=== PATIENT | female | born 1970 | race Caucasian/White ===

== ENCOUNTER 2016-12-31 15:42 | Emergency (ER) | payer SELFPAY ==
[~2016-12-31] VITALS: Ht 162.6 cm; Wt 61.0 kg
[~2016-12-31 15:42] MED LIST: BACT800T5 PO; LISI-515 PO; METO50TA PO
[2016-12-31 15:51] VITALS: BP 206/98; PULSE 85; RESP 16; TEMP 98.8; O2SAT 94
[2016-12-31] MEDS ORDERED: traMADol HCL 50 MG TAB PO ONE ×2 (16:45→19:45)
[2016-12-31 17:43] VITALS: BP 190/98; PULSE 70; RESP 20; O2SAT 98
--- NOTE | 2016-12-31 18:37 | PD ---
HPI Chief Complaint: Musculoskeletal Complaint Time Seen by Provider: 16:26 Travel History International Travel<30 days: No Contact w/Intl Traveler<30days: No Traveled to known affect area: No History of Present Illness HPI 46-year-old female complains of pain in the right leg starting in the region of the lower calf radiating to the region of the thigh. There is a shooting quality. She states it's severe. She reports some subjective shortness of breath. No fever. Duration one day. She denies similar prior episodes. Patient denies trauma. Patient reports no improvement from ibuprofen. PFSH Past Medical History Hx Anticoagulant Therapy: Yes (asa) Asthma: Yes Autoimmune Disease: No Cancer: Yes (REPORTS UTERINE CA-ABLASION) Cardiac Catheterization: Yes Cardiovascular Problems: Yes High Cholesterol: Yes Chest Pain: Yes Congestive Heart Failure: Yes Coronary Artery Disease: Yes Diminished Hearing: No Endocrine: No Gastrointestinal Disorders: Yes (GERD) Genitourinary: Yes Hypertension: Yes Immune Disorder: No Kidney Stones: Yes Musculoskeletal: No Neurologic: No Psychiatric: No Reproductive: No Respiratory: Yes Immunizations Current: Yes Myocardial Infarction: Yes (6) Tetanus Vaccination: < 5 Years Influenza Vaccination: Yes ?: Not : 4 Para: 3 Miscarriage: 2 Past Surgical History Cardiac Surgery: Yes Section: Yes Coronary Stent: Yes (13) Genitourinary Surgery: Yes (KIDNEY STONES) Gynecologic Surgery: Yes Other Surgery: Yes Social History Alcohol Use: No Tobacco Use: Yes (COUPLE A DAY) Substance Use: No Allergies-Medications (Allergen,Severity, Reaction): Coded Allergies: penicillin G (Unverified Allergy, Severe, Hives, 12/31/16) Reported Meds & Prescriptions Reported Meds & Active Scripts Active Lisinopril 20 Mg Tab 20 Mg PO DAILY Metoprolol Tartrate 50 Mg Tab 50 Mg PO BID Review of Systems Except as stated in HPI: all other systems reviewed are Neg Physical Exam Narrative GENERAL: 46-year-old female well-nourished well-developed SKIN: Warm and dry. HEAD: Atraumatic. Normocephalic. EYES: Pupils equal and round. No scleral icterus. No injection or drainage. ENT: No nasal bleeding or discharge. Mucous membranes pink and moist. NECK: Trachea midline. No JVD. CARDIOVASCULAR: Regular rate and rhythm. RESPIRATORY: No accessory muscle use. Clear to auscultation. Breath sounds equal bilaterally. GASTROINTESTINAL: Abdomen soft, non-tender, nondistended. Hepatic and splenic margins not palpable. MUSCULOSKELETAL: Extremities without clubbing, cyanosis. No obvious deformities. No significant erythema swelling and erythema or tenderness in the right lower extremity. No lower extremity asymmetry. NEUROLOGICAL: Awake and alert. No obvious cranial nerve deficits. Motor grossly within normal limits. Five out of 5 muscle strength in the arms and legs. Normal speech. PSYCHIATRIC: Appropriate mood and affect; insight and judgment normal. Data Data Last Documented VS Vital Signs Date Time Temp Pulse Resp B/P (MAP) Pulse Ox O2 Delivery O2 Flow Rate FiO2 12/31/16 21:04 67 18 167/95 (119) 98 12/31/16 19:53 Room Air 12/31/16 15:51 98.8 Vital signs reviewed Orders Orders Tramadol (Ultram) (12/31/16 16:45) D-Dimer (12/31/16 16:32) Ice / Cold Pack PRN (12/31/16 16:32) Us Leg Venous Doppler Bilat (12/31/16 ) Tramadol (Ultram) (12/31/16 19:45) Labs Laboratory Tests Test 12/31/16 16:50 D-Dimer Quantitative (PE/DVT) 0.71 MG/L FEU MDM Medical Decision Making Medical Screen Exam Complete: Yes Emergency Medical Condition: Yes Medical Record Reviewed: Yes Differential Diagnosis DVT, Noble's cyst, cellulitis, or claudication, fracture Narrative Course Lower extremity DVT study negative The patient is resting comfortably and feels better, is alert and in no distress. The patients results and examination findings were discussed. The repeat examination is unremarkable and benign. The history, exam, diagnostic testing, and current condition do not suggest any significant pathology to warrant further testing, continued ED treatment, admission, or surgical evaluation at this point. The vital signs have been stable. The patient does not have uncontrollable pain, intractable vomiting, or other significant symptoms. The patient's condition is stable and appropriate for discharge. The patient will pursue further outpatient evaluation with a primary care physician or other designated or consulting physician as indicated in the discharge instructions. The patient expressed understanding and was agreeable with this plan. Diagnosis Primary Impression: Leg pain Qualified Codes: M79.604 - Pain in right leg Referrals: Primary Care Physician 2 days Additional Instructions: Follow-up with a primary care provider for further diagnostic evaluation as needed. Med/Other Pt SpecificInfo: No Change to Meds Disposition: 01 DISCHARGE HOME Condition: Stable Arsalan Mathew MD Dec 31, 2016 18:37
[2016-12-31 19:53] VITALS: BP 187/92; PULSE 61; RESP 18; O2SAT 95
--- NOTE | 2016-12-31 20:15 | RADRPT ---
EXAM DATE/TIME: 12/31/2016 18:42 [facility] COMPARISON: US LEG BILATERAL VENOUS DOPPLER, October 29, 2015, 0:35. INDICATIONS : Bilateral leg swelling. MEDICAL HISTORY : Hypertension. Hypercholesterolemia. Gastroesophageal reflux disease. Myocardial infarction. Congesti ve heart failure. Coronary artery disease. Asthma. Kidney stones. Carcinoma, uterine. SURGICAL HISTORY : section. Cardiac catheterization. Coronary stent. Uterine ablasion. ENCOUNTER: Subsequent ACUITY: 1 day PAIN SCORE: 5/10 LOCATION: Bilateral legs. TECHNIQUE: Venous ultrasound of the left and right leg was performed from the inguinal ligament to the proximal calf. Real-time, color Doppler and spectral tracing, compression and augmentation techniques were us ed. FINDINGS: RIGHT LEG: There is normal compressibility of the deep venous system from the inguinal region to the proximal ca lf. No echogenic clot is seen in the lumen of the common femoral, femoral, popliteal, and posterior tibial veins. There is a normal response of the venous system to proximal and distal augmentation an d respiration. LEFT LEG: There is normal compressibility of the deep venous system from the inguinal region to the proximal ca lf. No echogenic clot is seen in the lumen of the common femoral, femoral, popliteal, and posterior tibial veins. There is a normal response of the venous system to proximal and distal augmentation an d respiration. CONCLUSION: No DVT. Cayden Jacobs MD on December 31, 2016 at 20:13 Board Certified Radiologist. This report was verified electronically.
[2016-12-31 20:57] VITALS: RESP 18
[2016-12-31 21:04] VITALS: BP 167/95
== END 2016-12-31 21:11 | disposition home or self-care (01) ==
LOC: PHED 15:42
DX: M79.604 Pain in right leg (principal)
CPT/HCPCS: 85379; 93970; 99285

== ENCOUNTER 2017-01-02 02:59 | Emergency (ER) | payer SELFPAY ==
[~2017-01-02] VITALS: Ht 162.6 cm; Wt 61.0 kg
[~2017-01-02 02:59] MED LIST changes: -BACT800T5 PO
[2017-01-02 03:09] VITALS: BP 220/107; PULSE 84; RESP 18; TEMP 98.4; O2SAT 94
[2017-01-02 04:39] VITALS: BP 204/118; PULSE 69; RESP 18; O2SAT 96
--- NOTE | 2017-01-02 04:57 | PD ---
HPI Chief Complaint: Musculoskeletal Complaint Time Seen by Provider: 04:46 Travel History International Travel<30 days: No Contact w/Intl Traveler<30days: No Traveled to known affect area: No History of Present Illness HPI The patient is a 46-year-old homeless female, frequent visitor to this emergency room often for pain complaints. The patient was seen 2 days ago for right leg pain and she comes again for right leg pain. Ultrasound was done at that time and is normal. The patient then complained well I have nausea vomiting and diarrhea that started yesterday but she has not had any of this in emergency department. The patient call twice for pain medications. PFSH Past Medical History Hx Anticoagulant Therapy: Yes (asa) Asthma: Yes Autoimmune Disease: No Cancer: Yes (REPORTS UTERINE CA-ABLASION) Cardiac Catheterization: Yes Cardiovascular Problems: Yes High Cholesterol: Yes Chest Pain: Yes Congestive Heart Failure: Yes Coronary Artery Disease: Yes Diminished Hearing: No Endocrine: No Gastrointestinal Disorders: Yes (GERD) Genitourinary: Yes Hypertension: Yes Immune Disorder: No Kidney Stones: Yes Musculoskeletal: No Neurologic: No Psychiatric: No Reproductive: No Respiratory: Yes Immunizations Current: Yes Myocardial Infarction: Yes (6) ?: Unknown : 4 Para: 3 Miscarriage: 2 Past Surgical History Cardiac Surgery: Yes Section: Yes Coronary Stent: Yes (13) Genitourinary Surgery: Yes (KIDNEY STONES) Gynecologic Surgery: Yes Other Surgery: Yes Social History Alcohol Use: No Tobacco Use: Yes (COUPLE A DAY) Substance Use: No Allergies-Medications (Allergen,Severity, Reaction): Coded Allergies: penicillin G (Verified Allergy, Severe, Hives, 01/02/17) Reported Meds & Prescriptions Reported Meds & Active Scripts Active Lisinopril 20 Mg Tab 20 Mg PO DAILY Metoprolol Tartrate 50 Mg Tab 50 Mg PO BID Review of Systems Except as stated in HPI: all other systems reviewed are Neg Physical Exam Narrative GENERAL: Well-nourished, well-developed patient in minimal apparent distress with her right leg pain. SKIN: Focused skin assessment warm/dry. HEAD: Normocephalic. EYES: No scleral icterus. No injection or drainage. NECK: Supple, trachea midline. No JVD or lymphadenopathy. CARDIOVASCULAR: Regular rate and rhythm without murmurs, gallops, or rubs. RESPIRATORY: Breath sounds equal bilaterally. No accessory muscle use. GASTROINTESTINAL: Abdomen soft, non-tender, nondistended. MUSCULOSKELETAL: No cyanosis, or edema. Right leg shows no swelling, no erythema, normal compressibility of the calf and no evidence of any infection. BACK: Nontender without obvious deformity. No CVA tenderness. Data Data Last Documented VS Vital Signs Date Time Temp Pulse Resp B/P (MAP) Pulse Ox O2 Delivery O2 Flow Rate FiO2 01/02/17 04:39 69 18 204/118 (146) 96 Room Air 01/02/17 03:09 98.4 MDM Medical Decision Making Medical Screen Exam Complete: Yes Emergency Medical Condition: Yes Medical Record Reviewed: Yes Differential Diagnosis Malingering, drug-seeking behavior, DVT-highly unlikely, Munchhausen syndrome, Narrative Course The patient was offered Toradol and Motrin. I do not feel comfortable writing narcotics for this patient. The patient states she has Motrin at home and found this entirely unacceptable. She has been worked up completely for this right leg pain and nothing has been found. The patient has been exhibiting drug -seeking behavior since she arrived asking multiple times for pain medications. She refused Toradol. Diagnosis Primary Impression: Drug-seeking behavior Additional Impression: Malingering Additional Instructions: You were offered Motrin but I do not feel comfortable writing narcotic pain medications for this problem. You are welcome to go to another emergency department if you want a second opinion. Med/Other Pt SpecificInfo: No Change to Meds Disposition: 01 DISCHARGE HOME Condition: Stable Sami Torres MD Jan 02, 2017 04:57
[2017-01-02] MEDS ORDERED: METO50TA PO (12:16)
[2017-01-02] MEDS ORDERED: MELO-1 PO (12:16)
[2017-01-02] MEDS ORDERED: CYCL1TAB29 PO (12:16)
[2017-01-02] MEDS ORDERED: LISI-515 PO (12:16)
== END 2017-01-02 05:05 | disposition left against medical advice (07) ==
LOC: PHED 02:59
DX: Z76.5 Malingerer [conscious simulation] (principal)
CPT/HCPCS: 99281

== ENCOUNTER 2017-01-02 10:44 | Emergency (ER) | payer SELFPAY ==
[~2017-01-02] VITALS: Ht 162.6 cm; Wt 62.0 kg
[2017-01-02 10:48] VITALS: BP 219/113; PULSE 84; RESP 18; TEMP 98.6; O2SAT 92
[2017-01-02 10:56] VITALS: BP 216/115; PULSE 78; RESP 17; O2SAT 96
[2017-01-02] MEDS ORDERED: ONDANSETRON HCL 4 MG/2 ML VIAL IV PUSH ONE (11:00)
[2017-01-02] MEDS ORDERED: SODIUM CHLORIDE 0.9% FLUSH 10 ML FLUSH IVF PRN (11:00)
[2017-01-02] MEDS ORDERED: METOPROLOL TARTRATE 5 MG/5 ML VIAL IV PUSH ONE (11:00)
[2017-01-02 11:03] VITALS: O2SAT 96
[2017-01-02 11:19] VITALS: BP 214/111; PULSE 73
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
[2017-01-02] MEDS ORDERED: traMADol HCL 50 MG TAB PO ONE (11:30)
[2017-01-02 11:35] LABS: AUTOMATED NEUTROPHIL # 4.6 TH/MM3 (1.8-7.7); BASOPHIL # 0.1 TH/MM3 (0-0.2); BASOPHIL % 0.8 % (0.0-2.0); EOSINOPHIL # 0.3 TH/MM3 (0-0.4); EOSINOPHIL % 3.4 % (0.0-4.0); HEMATOCRIT 45.5 % (35.0-46.0); HEMO FLAGS DIFF FINAL; LYMPH % 29.3 % (9.0-44.0); LYMPHOCYTE # 2.3 TH/MM3 (1.0-4.8); MEAN CELL VOLUME 92.5 FL (80.0-100.0); MEAN CORPUSCULAR HEMOGLOBIN 30.7 PG (27.0-34.0); MEAN CORPUSCULAR HGB CONC 33.2 % (32.0-36.0); MONO % 8.2 % (0.0-8.0); NEUT % 58.3 % (16.0-70.0); PLATELET COUNT 283 TH/MM3 (150-450); RED BLOOD COUNT 4.92 MIL/MM3 (4.00-5.30); RED CELL DISTRIBUTION WIDTH 13.7 % (11.6-17.2); WHITE BLOOD COUNT 7.9 TH/MM3 (4.0-11.0)
--- NOTE | 2017-01-02 11:39 | RADRPT ---
EXAM DATE/TIME: 01/02/2017 11:26 [facility] COMPARISON: CHEST SINGLE AP, April 12, 2016, 18:35. INDICATIONS : Chest and leg pain for four days. MEDICAL HISTORY : Hypertension. Hypercholesterolemia. Gastroesophageal reflux disease. SURGICAL HISTORY : section. Cardiac catheterization. Coronary stent. Uterine ENCOUNTER: Initial ACUITY: 4 - 6 days PAIN SCORE: 9/10 LOCATION: Bilateral Leg. FINDINGS: A single view of the chest demonstrates the lungs to be symmetrically aerated without evidence of mas s, infiltrate or effusion. The cardiomediastinal contours are unremarkable. Osseous structures are intact. CONCLUSION: No acute disease. Cayden Strange MD on January 02, 2017 at 11:37 Board Certified Radiologist. This report was verified electronically.
[2017-01-02 11:50] LABS: APTT (PATIENT) 25.7 SEC (24.3-30.1); INTERNATIONAL NORMALIZED RATIO 0.9 RATIO; PROTHROMBIN TIME - PATIENT 9.9 SEC (9.8-11.6)
[2017-01-02 11:51] LABS: ALT (GPT) 21 U/L (10-53); ANION GAP 7 MEQ/L (5-15); AST (GOT) 16 U/L (15-37); BICARBONATE 26.7 MEQ/L (21.0-32.0); BLOOD UREA NITROGEN 12 MG/DL (7-18); CHLORIDE 106 MEQ/L (98-107); GLOMERULAR FILTRATION RATE 80 ML/MIN (>89); MAGNESIUM 2.2 MG/DL (1.5-2.5); POTASSIUM 3.9 MEQ/L (3.5-5.1); SODIUM (NA) 140 MEQ/L (136-145)
[2017-01-02 11:55] LABS: ALKALINE PHOSPHATASE 85 U/L (45-117); TOTAL BILIRUBIN ADULT 0.2 MG/DL (0.2-1.0)
[2017-01-02 11:56] LABS: CREATINE KINASE 86 U/L (26-192)
[2017-01-02 12:13] VITALS: BP 178/87; PULSE 70; RESP 17; O2SAT 96
[2017-01-02] MEDS ORDERED: LISI-515 PO (12:16)
[2017-01-02] MEDS ORDERED: METO50TA PO (12:16)
[2017-01-02] MEDS ORDERED: CYCL1TAB29 PO (12:16)
[2017-01-02] MEDS ORDERED: MELO-1 PO (12:16)
--- NOTE | 2017-01-02 17:12 | EKG ---
Date Performed: 01/02/2017 Time Performed: 11:10:49 PTAGE: 46 years EKG: Sinus rhythm POSSIBLE LEFT ATRIAL ENLARGEMENT MODERATE T-WAVE ABNORMALITY, CONSIDER LATERAL ISCHEMIA Since previo us tracing, no significant change noted ABNORMAL ECG PREVIOUS TRACING : 11/22/2016 22.41 DOCTOR: Estela De Jesus Interpretating Date/Time 01/02/2017 17:06:01
== END 2017-01-02 13:28 | disposition home or self-care (01) ==
LOC: NEPD 10:44
DX: M79.671 Pain in right foot (principal); R11.2 Nausea with vomiting, unspecified; R19.7 Diarrhea, unspecified; R94.31 Abnormal electrocardiogram [ECG] [EKG]; I10 Essential (primary) hypertension; I50.9 Heart failure, unspecified; I25.10 Atherosclerotic heart disease of native coronary artery without angina pectoris; K21.9 Gastro-esophageal reflux disease without esophagitis; Z72.0 Tobacco use
CPT/HCPCS: 71010; 80053; 82550; 83690; 83735; 84484; 85025; 85610; 85730; 93005; 96374; 96375; 99285; J2405

== ENCOUNTER 2017-05-13 15:27 | Inpatient (IN) | payer SELFPAY ==
[~2017-05-13] VITALS: Ht 162.6 cm; Wt 88.4 kg
[2017-05-13] VITALS (8 sets, daily range): BP systolic 123–196; BP diastolic 62–102; PULSE 82–112; RESP 18–24; TEMP 98.4–98.5; O2SAT 88–93
[~2017-05-13 15:27] MED LIST changes: +ASPI81TA23 PO; +ATOR20TA15 PO; +Budeson-Formot 160-4.5 Mcg Inh INH; +CARV3.125 PO; +LEVA750T9 PO; -METO50TA PO; +PRED20 PO; +VENTAER INH
[2017-05-13] MEDS ORDERED: SODIUM CHLORIDE 0.9% FLUSH 10 ML FLUSH IVF PRN (16:45)
--- NOTE | 2017-05-13 16:49 | PD ---
HPI Chief Complaint: Respiratory Symptoms Time Seen by Provider: 16:41 Travel History International Travel<30 days: No Contact w/Intl Traveler<30days: No Traveled to known affect area: No History of Present Illness HPI 46-year-old female presents to the emergency department via EMS for evaluation of shortness of breath. Patient was discharged yesterday after being admitted for COPD exacerbation, hypoxia. She states she was going to get her prescriptions and she became short of breath and called EMS. The patient received albuterol 3 and sodium Medrol 125 mg IV of the EMS. She reports continued shortness of breath. Patient reports history of cardiac stents, hypertension. She is a current tobacco smoker. She denies any fevers or chills. She denies any chest pain. No abdominal pain. No nausea, vomiting, diarrhea. Patient had chest x-ray done on May 09 which showed no acute disease. CT pulmonary angiogram was negative for PE or pneumonia. She was admitted due to hypoxia. She was discharged prescription for albuterol inhaler. However, she has not been able to pick this up. No exacerbating or alleviating factors. Moderate severity. PFSH Past Medical History Hx Anticoagulant Therapy: Yes (asa) Asthma: Yes Autoimmune Disease: No Cancer: Yes (REPORTS UTERINE CA-ABLASION (1999)) Cardiac Catheterization: Yes Cardiovascular Problems: Yes High Cholesterol: Yes Chest Pain: Yes Congestive Heart Failure: No Coronary Artery Disease: Yes Diminished Hearing: No Endocrine: No Gastrointestinal Disorders: Yes (GERD) GERD: Yes Genitourinary: Yes Hypertension: Yes Immune Disorder: No Kidney Stones: Yes Musculoskeletal: No Neurologic: No Psychiatric: No Reproductive: No Respiratory: Yes Immunizations Current: Yes Myocardial Infarction: Yes (6) : 4 Para: 3 Miscarriage: 2 Past Surgical History Body Medical Devices: stents Cardiac Surgery: Yes Section: Yes Coronary Stent: Yes (13) Genitourinary Surgery: Yes (lithotripsy) Gynecologic Surgery: Yes (uterine ablation) Other Surgery: Yes Social History Alcohol Use: No Tobacco Use: Yes (COUPLE A DAY) Substance Use: No Allergies-Medications (Allergen,Severity, Reaction): Coded Allergies: penicillin G (Verified Allergy, Severe, Hives, 05/13/17) Reported Meds & Prescriptions Reported Meds & Active Scripts Active Aspirin EC (Aspirin) 81 Mg Tabdr 81 Mg PO DAILY 30 Days Ventolin Hfa 18 GM Inh (Albuterol Sulfate) 90 Mcg/Act Aer 2 Puff INH Q4H PRN Prednisone 20 Mg Tab 40 Mg PO DAILY 5 Days Take 40 mg (2 tablets) daily for 5 days Levaquin (Levofloxacin) 750 Mg Tablet 750 Mg PO DAILY [Budeson-Formot 160-4.5 Mcg Inh] 60 PUFF Aero 2 Puff INH Q12HR Atorvastatin (Atorvastatin Calcium) 20 Mg Tab 20 Mg PO DAILY Coreg (Carvedilol) 3.125 Mg Tab 3.125 Mg PO Q12HR Lisinopril 20 Mg Tab 20 Mg PO DAILY Reported Metoprolol Tartrate 25 Mg Tab 25 Mg PO BID Review of Systems Except as stated in HPI: all other systems reviewed are Neg Physical Exam Narrative GENERAL: Well-nourished, well-developed female patient, afebrile. SKIN: Focused skin assessment warm/dry. HEAD: Normocephalic. Atraumatic. EYES: No scleral icterus. No injection or drainage. NECK: Supple, trachea midline. No JVD or lymphadenopathy. CARDIOVASCULAR: Regular rate and rhythm without murmurs, gallops, or rubs. RESPIRATORY: Breath sounds equal bilaterally. No accessory muscle use. Lungs sounds with inspiratory and expiratory wheezes noted throughout. GASTROINTESTINAL: Abdomen soft, non-tender, nondistended. MUSCULOSKELETAL: No cyanosis, or edema. BACK: Nontender without obvious deformity. No CVA tenderness. Data Data Last Documented VS Vital Signs Date Time Temp Pulse Resp B/P (MAP) Pulse Ox O2 Delivery O2 Flow Rate FiO2 05/13/17 19:55 88 Room Air 05/13/17 19:30 103 18 3.00 05/13/17 15:51 98.5 Orders Orders Complete Blood Count With Diff (05/13/17 16:41) Basic Metabolic Panel (Bmp) (05/13/17 16:41) Magnesium (Mg) (05/13/17 16:41) Ckmb (Isoenzyme) Profile (05/13/17 16:41) Troponin I (05/13/17 16:41) Iv Access Insert/Monitor (05/13/17 16:41) Electrocardiogram (05/13/17 16:41) Ecg Monitoring (05/13/17 16:41) Oximetry (05/13/17 16:41) Oxygen Administration (05/13/17 16:41) Chest, Single Ap (05/13/17 16:41) Sodium Chloride 0.9% Flush (Ns Flush) (05/13/17 16:45) Albuterol-Ipratropium Neb (Duoneb Neb) (05/13/17 16:45) Protein Corrected Calcium(Pcc) (05/13/17 17:20) CKMB (05/13/17 17:20) CKMB% (05/13/17 17:20) Admit Order (Ed Use Only) (05/13/17 20:14) Admit To Inpatient (05/13/17 ) Vital Signs (Adult) Q4H (05/13/17 20:14) Activity Oob With Assistance (05/13/17 20:14) Timber Appraiser / Telemetry .CONTINUOUS (05/13/17 20:14) Diet Heart Healthy (05/14/17 Breakfast) Sodium Chloride 0.9% Flush (Ns Flush) (05/13/17 20:15) Sodium Chloride 0.9% Flush (Ns Flush) (05/13/17 21:00) Basic Metabolic Panel (Bmp) (05/14/17 06:00) Complete Blood Count With Diff (05/14/17 06:00) Pt Request For Service (05/13/17 20:14) Case Management Consult (05/13/17 20:14) Naloxone Inj (Narcan Inj) (05/13/17 20:15) Inpatient Certification (05/13/17 ) Albuterol-Ipratropium Neb (Duoneb Neb) (05/13/17 22:00) Albuterol-Ipratropium Neb (Duoneb Neb) (05/13/17 20:15) Ranitidine Liq (Zantac Liq) (05/13/17 21:00) Labs Laboratory Tests Test 05/13/17 17:20 White Blood Count 15.0 TH/MM3 Red Blood Count 4.80 MIL/MM3 Hemoglobin 15.2 GM/DL Hematocrit 44.4 % Mean Corpuscular Volume 92.6 FL Mean Corpuscular Hemoglobin 31.6 PG Mean Corpuscular Hemoglobin Concent 34.2 % Red Cell Distribution Width 13.9 % Platelet Count 237 TH/MM3 Mean Platelet Volume 8.6 FL Neutrophils (%) (Auto) 84.3 % Lymphocytes (%) (Auto) 9.3 % Monocytes (%) (Auto) 6.2 % Eosinophils (%) (Auto) 0.1 % Basophils (%) (Auto) 0.1 % Neutrophils # (Auto) 12.7 TH/MM3 Lymphocytes # (Auto) 1.4 TH/MM3 Monocytes # (Auto) 0.9 TH/MM3 Eosinophils # (Auto) 0.0 TH/MM3 Basophils # (Auto) 0.0 TH/MM3 CBC Comment AUTO DIFF Differential Total Cells Counted 100 Neutrophils % (Manual) 92 % Band Neutrophils % 1 % Lymphocytes % 4 % Monocytes % 3 % Neutrophils # (Manual) 14.0 TH/MM3 Differential Comment FINAL DIFF MANUAL Toxic Granulation 1+ Platelet Estimate NORMAL Platelet Morphology Comment NORMAL Blood Urea Nitrogen 16 MG/DL Creatinine 0.55 MG/DL Random Glucose 106 MG/DL Total Protein 5.6 GM/DL Calcium Level 7.0 MG/DL Magnesium Level 1.8 MG/DL Sodium Level 142 MEQ/L Potassium Level 3.3 MEQ/L Chloride Level 109 MEQ/L Carbon Dioxide Level 25.7 MEQ/L Anion Gap 7 MEQ/L Estimat Glomerular Filtration Rate 118 ML/MIN Protein Corrected Calcium 7.8 MG/DL Total Creatine Kinase 170 U/L Creatine Kinase MB 4.7 NG/ML Troponin I 0.04 NG/ML [facility] Medical Decision Making Medical Screen Exam Complete: Yes Emergency Medical Condition: Yes Medical Record Reviewed: Yes Differential Diagnosis COPD exacerbation versus pneumonia versus bronchitis Narrative Course 46-year-old female presents to the emergency department for evaluation shortness of breath. She was discharged yesterday for the same. EKG, CBC, BMP , magnesium, CK, troponin, chest x-ray are ordered and pending. She is given DuoNeb 3. EKG shows sinus rhythm, heart rate 83, T-wave inversion in V4, V5, V6. CBC shows leukocytosis of 15.0. BMP shows hypokalemia at 3.3. Magnesium is 1.8. CK is 170. Troponin is 0.04. Chest x-ray shows hyperaerated lungs characteristic of COPD, no evidence of acute airspace disease or congestion. Room air saturation is 88%. [facility] is paged for admission. Dr. Aaron accepted admission. Diagnosis Primary Impression: COPD exacerbation Additional Impression: Hypoxia Admitting Information Admitting Physician Requests: Adry Gonzalez May 13, 2017 16:49
[2017-05-13] MEDS: RESP: ALBUTEROL 2.5 MG/IPRATROPIUM 0.5 MG NEB (SCH) INH ×2 (17:06→17:07)
--- NOTE | 2017-05-13 17:06 | RADRPT ---
EXAM DATE/TIME: 05/13/2017 16:50 [facility] COMPARISON: CHEST SINGLE AP, May 09, 2017, 15:28. INDICATIONS : Short of breath MEDICAL HISTORY : Cardiovascular disease. Hypertension Renal calculi. uterine cancer SURGICAL HISTORY : section. Coronary artery stent. ENCOUNTER: Initial ACUITY: 1 day PAIN SCORE: 0/10 LOCATION: Bilateral chest FINDINGS: A single view of the chest demonstrates the lungs to be symmetrically hyperaerated without evidence o f mass, infiltrate or effusion. The cardiomediastinal contours are unremarkable. Osseous structures are intact. CONCLUSION: 1. Hyperaerated lungs characteristic of COPD. 2. No evidence of acute air space disease or congestion. Vinnie Beriros MD on May 13, 2017 at 17:03 Board Certified Radiologist. This report was verified electronically.
[2017-05-13] MEDS ORDERED: METO25TA3 PO (17:47)
[2017-05-13 18:28] LABS: AUTOMATED NEUTROPHIL # 12.7 TH/MM3 (1.8-7.7); BASOPHIL % 0.1 % (0.0-2.0); EOSINOPHIL % 0.1 % (0.0-4.0); HEMATOCRIT 44.4 % (35.0-46.0); HEMOGLOBIN 15.2 GM/DL (11.6-15.3); LYMPH % 9.3 % (9.0-44.0); LYMPHOCYTE # 1.4 TH/MM3 (1.0-4.8); MEAN CELL VOLUME 92.6 FL (80.0-100.0); MEAN CORPUSCULAR HEMOGLOBIN 31.6 PG (27.0-34.0); MEAN CORPUSCULAR HGB CONC 34.2 % (32.0-36.0); MEAN PLATELET VOLUME 8.6 FL (7.0-11.0); MONO % 6.2 % (0.0-8.0); MONOCYTE # 0.9 TH/MM3 (0-0.9); NEUT % 84.3 % (16.0-70.0); PLATELET COUNT 237 TH/MM3 (150-450); RED CELL DISTRIBUTION WIDTH 13.9 % (11.6-17.2)
[2017-05-13 19:00] LABS: BANDS 1 % (0-6); LYMPHOCYTES 4 % (9-44); MONOCYTES 3 % (0-8); POLYS (SEG NEUTROPHILS) 92 % (16-70); TOXIC GRANULATION 1+ (NORMAL)
[2017-05-13 19:16] LABS: BICARBONATE 25.7 MEQ/L (21.0-32.0); BLOOD UREA NITROGEN 16 MG/DL (7-18); GLUCOSE,RANDOM 106 MG/DL (74-106)
[2017-05-13 19:17] LABS: CHLORIDE 109 MEQ/L (98-107)
[2017-05-13 19:18] LABS: SODIUM (NA) 142 MEQ/L (136-145)
[2017-05-13 19:21] LABS: CREATININE 0.55 MG/DL (0.50-1.00); GLOMERULAR FILTRATION RATE 118 ML/MIN (>89); MAGNESIUM 1.8 MG/DL (1.5-2.5)
[2017-05-13 19:29] LABS: CALCIUM-PROTEIN CORRECTED 7.8 MG/DL (8.5-10.1); TOTAL PROTEIN 5.6 GM/DL (6.4-8.2); TROPONIN I 0.04 NG/ML (0.02-0.05)
[2017-05-13] MEDS ORDERED: NALOXONE HCL 0.4 MG/ML AMP IV PUSH PRN (20:15)
[2017-05-13] MEDS ORDERED: RESP: ALBUTEROL 2.5 MG/IPRATROPIUM 0.5 MG NEB (PRN) NEB (20:15)
[2017-05-13] MEDS ORDERED: SODIUM CHLORIDE 0.9% FLUSH 10 ML FLUSH IV FLUSH PRN (20:15)
[2017-05-13] MEDS ORDERED: POTASSIUM CHLORIDE 25 MEQ EFFERVESCENT TAB PO ONE (20:45)
[2017-05-13] MEDS ORDERED: methylPREDNISolone SOD SUCC 40 MG/1 ML VIAL IV PUSH SCH (21:00)
[2017-05-13] MEDS: RESP: ALBUTEROL 2.5 MG/IPRATROPIUM 0.5 MG NEB (SCH) NEB (21:00)
[2017-05-13] MEDS: FAMOTIDINE 20 MG TAB PO SCH (21:37)
[2017-05-13] MEDS: SODIUM CHLORIDE 0.9% FLUSH 10 ML FLUSH IV FLUSH SCH (21:37)
[2017-05-13] MEDS ORDERED: methylPREDNISolone SOD SUCC 125 MG/2 ML VIAL IV PUSH ONE (21:45)
--- NOTE | 2017-05-13 22:21 | HHI.HP ---
HPI Service [facility] Primary Care Physician Unknown Admission Diagnosis COPD exacerbation, hypoxia Diagnoses: (1) COPD exacerbation (2) Hypoxia (3) Chest pain Chief Complaint: Progressively worsening shortness of breath Travel History International Travel<30 Days: No Contact w/Intl Traveler <30 Da: No Traveled to Known Affected Are: No History of Present Illness The patient is a 46-year-old homeless female with a history of coronary artery disease status post multiple stent placement, hypertension, hyperlipidemia, nephrolithiasis, and COPD who presents to the emergency department for evaluation of severe shortness of breath. The patient was admitted for observation from 05/09 - 05/12 and was discharged after she passed a walk test. She states that she is homeless, was awaiting funds to obtain her prescriptions from discharge, and became progressively more short of breath with wheezing and EMS was alerted. She is seen in the emergency room. She reports that she never felt that her breathing got better during her last admission but does acknowledge passing and walking cast prior to discharge. She states that her symptoms began around ' Day and included fever, chills, productive cough with yellowish-green sputum, wheezing, and shortness of breath. She also reports some chest pain upon arrival in the emergency room today but has since resolved. That pain is described as a burning and she feels it is different than the pain she had prior to her cardiac stent placement. She has not had Levaquin since discharge on 05/12/2017. She denies any nausea, vomiting, or diarrhea. She denies any fever since discharge. Review of Systems Except as stated in HPI: all other systems reviewed are Neg Past Family Social History Past Medical History Coronary artery disease status post multiple stents placed Hypertension Hyperlipidemia COPD History of nephrolithiasis Denies any history of diabetes mellitus, CVA, PE, DVT, seizures, or cancer. . Past Surgical History Lithotripsy Multiple cardiac catheterizations - Denies any history of uterine ablation . Reported Medications Reported Meds & Active Scripts Active Aspirin EC (Aspirin) 81 Mg Tabdr 81 Mg PO DAILY 30 Days Ventolin Hfa 18 GM Inh (Albuterol Sulfate) 90 Mcg/Act Aer 2 Puff INH Q4H PRN Prednisone 20 Mg Tab 40 Mg PO DAILY 5 Days Take 40 mg (2 tablets) daily for 5 days Levaquin (Levofloxacin) 750 Mg Tablet 750 Mg PO DAILY [Budeson-Formot 160-4.5 Mcg Inh] 60 PUFF Aero 2 Puff INH Q12HR Atorvastatin (Atorvastatin Calcium) 20 Mg Tab 20 Mg PO DAILY Coreg (Carvedilol) 3.125 Mg Tab 3.125 Mg PO Q12HR Lisinopril 20 Mg Tab 20 Mg PO DAILY Reported Metoprolol Tartrate 25 Mg Tab 25 Mg PO BID . Allergies: Coded Allergies: penicillin G (Verified Allergy, Severe, Hives, 05/13/17) Active Ordered Medications Current Medications Sodium Chloride (NS Flush) 2 ml UNSCH PRN IVF FLUSH AFTER USING IV ACCESS; Start 05/13/17 at 16:45; Stop 05/13/17 at 20:24; Status DC Albuterol/ Ipratropium (Duoneb Neb) 1 ampule Q15M INH Last administered on at 17:07; Start 05/13/17 at 16:45; Stop 05/13/17 at 17:16; Status DC Sodium Chloride (NS Flush) 2 ml UNSCH PRN IV FLUSH FLUSH AFTER USING IV ACCESS ; Start 05/13/17 at 20:15 Sodium Chloride (NS Flush) 2 ml BID IV FLUSH Last administered on 05/13/17at 21: 37; Start 05/13/17 at 21:00 Naloxone HCl (Narcan Inj) 0.4 mg UNSCH PRN IV PUSH SEE LABEL COMMENTS; Start at 20:15 Albuterol/ Ipratropium (Duoneb Neb) 1 ampule Q6HR NEB NEB Last administered on 05/13/17at 21:00; Start 05/13/17 at 22:00 Albuterol/ Ipratropium (Duoneb Neb) 1 ampule Q2HR NEB PRN NEB wheezing; Start 05/13/17 at 20:15 Famotidine (Pepcid) 20 mg Q12HR PO Last administered on 05/13/17at 21:37; Start 05/13/17 at 21:00 Methylprednisolone Sodium Succinate (SoluMEDROL INJ) 40 mg Q6H IV PUSH ; Start 05/13/17 at 21:00; Stop 05/13/17 at 21:35; Status DC Potassium Bicarb/ Potassium Chloride (K-Lyte Cl Eff) 25 meq ONCE ONCE PO Last administered on 05/13/17at 21:36; Start 05/13/17 at 20:45; Stop 05/13/17 at 20: 52; Status DC Methylprednisolone Sodium Succinate (SoluMEDROL INJ) 125 mg ONCE ONCE IV PUSH ; Start 05/13/17 at 21:45; Stop 05/13/17 at 21:46; Status DC Methylprednisolone Sodium Succinate (SoluMEDROL INJ) 40 mg Q6H IV PUSH ; Start 05/14/17 at 02:00 Enoxaparin Sodium (Lovenox Inj) 40 mg Q24H SQ ; Start 05/13/17 at 22:00 . Family History Mother with coronary artery disease, after open heart surgery at age 52, COPD, ESRD Brother with coronary artery disease at age 48 . Social History Tobacco: Smokes one quarter pack per day Alcohol: Denies Illicit Drugs: Denies Reports homelessness . Physical Exam Vital Signs Vital Signs Date Time Temp Pulse Resp B/P (MAP) Pulse Ox O2 Delivery O2 Flow Rate FiO2 05/13/17 21:37 05/13/17 21:03 93 Nasal Cannula 3.00 05/13/17 21:00 88 18 123/62 (82) 93 Nasal Cannula 3.00 05/13/17 19:55 88 Room Air 05/13/17 19:30 103 18 156/82 (106) 92 Nasal Cannula 3.00 05/13/17 17:40 112 19 173/86 (115) 92 Nasal Cannula 3.00 05/13/17 17:20 94 Nasal Cannula 3.00 05/13/17 15:54 24 92 Nasal Cannula 2.00 05/13/17 15:51 98.5 102 24 196/102 (133) 92 Physical Exam GENERAL: This is a middle-aged female patient, in no apparent distress. SKIN: No rashes. Cool and dry. HEAD: Atraumatic. Normocephalic. EYES: No scleral icterus. No injection or drainage. ENT: Nose without bleeding, purulent drainage. NECK: Trachea midline. No JVD. CARDIOVASCULAR: Regular rate and rhythm without murmurs, gallops, or rubs. RESPIRATORY: Breath sounds equal bilaterally. No rales; scattered few inspiratory and expiratory rhonchi auscultated. No accessory muscle use. Oxygen saturation 94% on 3L NC. GASTROINTESTINAL: Abdomen soft, non-tender, nondistended. No guarding. MUSCULOSKELETAL: Extremities without clubbing, cyanosis, or edema. No calf tenderness. NEUROLOGICAL: Awake and alert. Motor and sensory grossly within normal limits. Normal speech. . Laboratory Laboratory Tests Test 05/13/17 17:20 White Blood Count 15.0 Red Blood Count 4.80 Hemoglobin 15.2 Hematocrit 44.4 Mean Corpuscular Volume 92.6 Mean Corpuscular Hemoglobin 31.6 Mean Corpuscular Hemoglobin Concent 34.2 Red Cell Distribution Width 13.9 Platelet Count 237 Mean Platelet Volume 8.6 Neutrophils (%) (Auto) 84.3 Lymphocytes (%) (Auto) 9.3 Monocytes (%) (Auto) 6.2 Eosinophils (%) (Auto) 0.1 Basophils (%) (Auto) 0.1 Neutrophils # (Auto) 12.7 Lymphocytes # (Auto) 1.4 Monocytes # (Auto) 0.9 Eosinophils # (Auto) 0.0 Basophils # (Auto) 0.0 CBC Comment AUTO DIFF Differential Total Cells Counted 100 Neutrophils % (Manual) 92 Band Neutrophils % 1 Lymphocytes % 4 Monocytes % 3 Neutrophils # (Manual) 14.0 Differential Comment FINAL DIFF MANUAL Toxic Granulation 1+ Platelet Estimate NORMAL Platelet Morphology Comment NORMAL Blood Urea Nitrogen 16 Creatinine 0.55 Random Glucose 106 Total Protein 5.6 Calcium Level 7.0 Magnesium Level 1.8 Sodium Level 142 Potassium Level 3.3 Chloride Level 109 Carbon Dioxide Level 25.7 Anion Gap 7 Estimat Glomerular Filtration Rate 118 Protein Corrected Calcium 7.8 Total Creatine Kinase 170 Creatine Kinase MB 4.7 Troponin I 0.04 Result Diagram: 05/13/17 1720 05/13/17 1720 Imaging Last Impressions Chest X-Ray 05/13/17 1641 Signed Impressions: Service Date/Time: Saturday, May 13, 2017 16:50 - CONCLUSION: 1. Hyperaerated lungs characteristic of COPD. 2. No evidence of acute air space disease or congestion. Vinnie Berrios MD . Caprini VTE Risk Assessment Caprini VTE Risk Assessment: Mod/High Risk (score >= 2) Caprini Risk Assessment Model Point Value = 1 Point Value = 2 Point Value = 3 Point Value = 5 Age 41-60 Minor surgery BMI > 25 kg/m2 Swollen legs Varicose veins or History of unexplained or recurrent spontaneous Oral contraceptives or hormone replacement Sepsis (< 1 month) Serious lung disease, including pneumonia (< 1 month) Abnormal pulmonary function Acute myocardial infarction Congestive heart failure (< 1 month) History of inflammatory bowel disease Medical patient at bed rest Age 61-74 Arthroscopic surgery Major open surgery (> 45 min) Laparoscopic surgery (> 45 min) Malignancy Confined to bed (> 72 hours) Immobilizing plaster cast Central venous access Age >= 75 History of VTE Family history of VTE Factor V Leiden Prothrombin [id number] Lupus anticoagulant Anticardiolipin antibodies Elevated serum homocysteine Heparin-induced thrombocytopenia Other congenital or acquired thrombophilia Stroke (< 1 month) Elective arthroplasty Hip, pelvis, or leg fracture Acute spinal cord injury (< 1 month) Prophylaxis Regimen Total Risk Factor Score Risk Level Prophylaxis Regimen 0-1 Low Early ambulation 2 Moderate Order ONE of the following: *Sequential Compression Device (SCD) *Heparin 5000 units SQ BID 3-4 Higher Order ONE of the following medications: *Heparin 5000 units SQ TID *Enoxaparin/Lovenox 40 mg SQ daily (WT < 150 kg, CrCl > 30 mL/min) *Enoxaparin/Lovenox 30 mg SQ daily (WT < 150 kg, CrCl > 10-29 mL/min) *Enoxaparin/Lovenox 30 mg SQ BID (WT < 150 kg, CrCl > 30 mL/min) AND/OR *Sequential Compression Device (SCD) 5 or more Highest Order ONE of the following medications: *Heparin 5000 units SQ TID (Preferred with Epidurals) *Enoxaparin/Lovenox 40 mg SQ daily (WT < 150 kg, CrCl > 30 mL/min) *Enoxaparin/Lovenox 30 mg SQ daily (WT < 150 kg, CrCl > 10-29 mL/min) *Enoxaparin/Lovenox 30 mg SQ BID (WT < 150 kg, CrCl > 30 mL/min) AND *Sequential Compression Device (SCD) Assessment and Plan Problem List: (1) COPD exacerbation ICD Code: J44.1 - Chronic obstructive pulmonary disease with (acute) exacerbation Status: Acute (2) Hypoxia ICD Code: R09.02 - Hypoxemia Status: Acute (3) Chest pain ICD Code: R07.9 - Chest pain, unspecified (4) Tobacco abuse ICD Code: Z72.0 - Tobacco abuse Status: Acute Assessment and Plan The patient is a 46-year-old homeless female with a history of coronary artery disease status post multiple stent placement, hypertension, hyperlipidemia, nephrolithiasis, and COPD who presents to the emergency department for evaluation of severe shortness of breath. The patient was admitted for observation from 05/09 - 05/12 and was discharged after she passed a walk test. She states that she is homeless, was awaiting funds to obtain her prescriptions from discharge, and became progressively more short of breath with wheezing and EMS was alerted. COPD Exacerbation with hypoxia - RA oxygen saturation 88%; 94% on 3 L supplemental oxygen - CXR with hyperinflation characteristic of COPD - no effusions or infiltrates noted. - Duonebs q6h ATC and q2h PRN wheezing - supplemental oxygen titrated to maintain oxygen saturation greater than 92% - Solu-Medrol 125 mg IV push times one then 40 mg every 6 hours - Resume Levaquin 750 mg by mouth - therapy started 05/09 - should continue 4 to 7 days depending on response to treatment - Case management consultation - will need assistance with discharge planning - patient readmitted following failure to obtain outpatient prescription - negative testing for flu a and b on 05/09/16 - Physical therapy consulted - consider pulmonary consultation if necessary Chest pain, atypical - will r/o with serial cardiac enzymes and EKGs - initial Troponin I 0.04 (was < 0.02 during last admission), CKMB elevated at 4.7, initial 12 lead EKG personally reviewed with mild ST depression in I, IIV4, V5, V6 - t-wave inverted V5 and V6 (similar in appearance to EKGs from 05/09/16 and 05/10/16) - chest pain free at time of exam - continuous cardiac telemetry to monitor for cardiac arrhythmias - Heart healthy diet Hypokalemia - Initial potassium 3.3 - Replaced orally - Recheck BMP in a.m. and follow potassium results - replace further if needed Tobacco abuse - Advised cessation CAD, Hypertension, Hyperlipidemia - resume home medications and monitor DVT prophylaxis - Lovenox 40 mg subcutaneous every 24 hours Discuss[address] Condition With Dr. Aaron, patient . Physician Certification 2 Midnight Certification Type: Admission for Inpatient Services Order for Inpatient Services The services are ordered in accordance with Medicare regulations or non- Medicare payer requirements, as applicable. In the case of services not specified as inpatient-only, they are appropriately provided as inpatient services in accordance with the 2-midnight benchmark. Estimated LOS (days): 2 days is the estimated time the patient will need to remain in the hospital, assuming treatment plan goals are met and no additional complications. Post-Hospital Plan: Not yet determined Sobeida Bell May 13, 2017 22:21
[2017-05-13] MEDS: LEVOFLOXACIN 750 MG TAB PO SCH (22:31)
[2017-05-13] MEDS: ENOXAPARIN SODIUM 40 MG/0.4 ML SYRINGE SQ SCH (22:31)
[2017-05-14] VITALS (9 sets, daily range): BP systolic 125–183; BP diastolic 63–92; PULSE 73–99; RESP 18; TEMP 98.2–98.8; O2SAT 91–95
[2017-05-14 00:01] LABS: TROPONIN I 0.03 NG/ML (0.02-0.05)
[2017-05-14] MEDS: methylPREDNISolone SOD SUCC 40 MG/1 ML VIAL IV PUSH SCH ×4 (02:40→21:12)
[2017-05-14] MEDS: RESP: ALBUTEROL 2.5 MG/IPRATROPIUM 0.5 MG NEB (SCH) NEB ×4 (03:07→21:26)
[2017-05-14] MEDS: LISINOPRIL 20 MG TAB PO SCH (08:53)
[2017-05-14] MEDS: LEVOFLOXACIN 750 MG TAB PO SCH (08:53)
[2017-05-14] MEDS: ASPIRIN EC 81 MG TABEC PO SCH (08:53)
[2017-05-14] MEDS: METOPROLOL TARTRATE 25 MG TAB PO SCH ×2 (08:53→21:12)
[2017-05-14] MEDS: ATORVASTATIN 20 MG TAB PO SCH (08:53)
[2017-05-14] MEDS: FAMOTIDINE 20 MG TAB PO SCH ×2 (08:53→21:12)
[2017-05-14] MEDS: SODIUM CHLORIDE 0.9% FLUSH 10 ML FLUSH IV FLUSH SCH ×2 (08:54→21:12)
[2017-05-14] MEDS: BUDESONIDE-FORMOTEROL 160/4.5 MCG INHALER INH SCH ×2 (08:54→21:12)
[2017-05-14] MEDS ORDERED: INFLUENZA VIRUS VACCINE (QUADRIVALENT) 0.5 ML SYR IM ONE (09:00)
--- NOTE | 2017-05-14 10:43 | HHI.PR ---
Subjective Remarks in no acute distress but with some sob and wheezing. afebrile. complaining of mild back pain. Objective Vitals Vital Signs Date Time Temp Pulse Resp B/P (MAP) Pulse Ox O2 Delivery O2 Flow Rate FiO2 05/14/17 07:54 94 Nasal Cannula 2.00 05/14/17 07:47 98.2 85 18 183/92 (122) 93 05/14/17 04:50 98.6 82 18 125/63 (83) 93 05/14/17 03:00 76 05/13/17 23:33 98.4 96 18 139/62 (87) 93 05/13/17 23:00 82 05/13/17 21:37 05/13/17 21:03 93 Nasal Cannula 3.00 05/13/17 21:00 88 18 123/62 (82) 93 Nasal Cannula 3.00 05/13/17 19:55 88 Room Air 05/13/17 19:30 103 18 156/82 (106) 92 Nasal Cannula 3.00 05/13/17 17:40 112 19 173/86 (115) 92 Nasal Cannula 3.00 05/13/17 17:20 94 Nasal Cannula 3.00 05/13/17 15:54 24 92 Nasal Cannula 2.00 05/13/17 15:51 98.5 102 24 196/102 (133) 92 Result Diagram: 05/13/17 1720 05/13/17 1720 Imaging Last Impressions Chest X-Ray 05/13/17 1641 Signed Impressions: Service Date/Time: Saturday, May 13, 2017 16:50 - CONCLUSION: 1. Hyperaerated lungs characteristic of COPD. 2. No evidence of acute air space disease or congestion. Vinnie Berrios MD Objective Remarks GENERAL: This is a well-nourished, well-developed patient, in no apparent distress. CARDIOVASCULAR: Regular rate and regular rhythm without murmurs, gallops, or rubs. RESPIRATORY: bilateral wheezing. GASTROINTESTINAL: Abdomen soft, non-tender, nondistended. Normal, active bowel sounds MUSCULOSKELETAL: Extremities without clubbing, cyanosis, or edema. NEURO: Alert & Oriented x4 to person, place, time, situation. Moves all ext x4 Medications and IVs Inpatient Medications Albuterol/ Ipratropium (Duoneb Neb) 1 ampule Q2HR NEB PRN NEB wheezing; Start 05/13/17 at 20:15 Aspirin (Ecotrin Ec) 81 mg DAILY PO Last administered on 05/14/17 08:53; Start 05/14/17 at 09:00 Atorvastatin Calcium (Lipitor) 20 mg DAILY PO Last administered on 05/14/17 08: 53; Start 05/14/17 at 09:00 Budesonide/ Formoterol Fumarate (Symbicort 160-4.5 Mcg Inh) 2 puff Q12HR INH Last administered on 05/14/17 08:54; Start 05/14/17 at 09:00 Enoxaparin Sodium (Lovenox Inj) 40 mg Q24H SQ Last administered on 05/13/17 22: 31; Start 05/13/17 at 22:00 Famotidine (Pepcid) 20 mg Q12HR PO Last administered on 05/14/17 08:53; Start 05/13/17 at 21:00 Influenza Virus Vaccine (Flu (Quadrivalent) Vaccine Inj) 0.5 ml ONCE ONCE IM ; Start 05/14/17 at 09:00; Stop 05/14/17 at 09:01; Status DC Levofloxacin (Levaquin) 750 mg DAILY PO Last administered on 05/14/17 08:53; Start 05/13/17 at 22:00 Lisinopril (Prinivil) 20 mg DAILY PO Last administered on 05/14/17 08:53; Start 05/14/17 at 09:00 Methylprednisolone Sodium Succinate (SoluMEDROL INJ) 40 mg Q6H IV PUSH Last administered on 05/14/17 08:54; Start 05/14/17 at 02:00 Metoprolol Tartrate (Lopressor) 25 mg BID PO Last administered on 05/14/17 08: 53; Start 05/14/17 at 09:00 Naloxone HCl (Narcan Inj) 0.4 mg UNSCH PRN IV PUSH SEE LABEL COMMENTS; Start at 20:15 Potassium Bicarb/ Potassium Chloride (K-Lyte Cl Eff) 25 meq ONCE ONCE PO Last administered on 05/13/17at 21:36; Start 05/13/17 at 20:45; Stop 05/13/17 at 20: 52; Status DC Sodium Chloride (NS Flush) 2 ml BID IV FLUSH Last administered on 1/9/18at 08: 54; Start 05/13/17 at 21:00 A/P Problem List: (1) COPD exacerbation ICD Code: J44.1 - Chronic obstructive pulmonary disease with (acute) exacerbation Status: Acute (2) Hypoxia ICD Code: R09.02 - Hypoxemia Status: Acute (3) Chest pain ICD Code: R07.9 - Chest pain, unspecified (4) Tobacco abuse ICD Code: Z72.0 - Tobacco abuse Status: Acute Assessment and Plan COPD Exacerbation with hypoxia - RA oxygen saturation 88%; 94% on 3 L supplemental oxygen - CXR with hyperinflation characteristic of COPD - no effusions or infiltrates noted. - Duonebs q6h ATC and q2h PRN wheezing - supplemental oxygen titrated to maintain oxygen saturation greater than 92% - continue IV solumedrol. - Resume Levaquin 750 mg by mouth - therapy started 05/09 - should continue 4 to 7 days depending on response to treatment - Case management consultation - will need assistance with discharge planning - patient readmitted following failure to obtain outpatient prescription - negative testing for flu a and b on 05/09/16 - Physical therapy consulted - consider pulmonary consultation if necessary Chest pain, atypical - troponin negative. - V5 and V6 (similar in appearance to EKGs from 05/09/16 and 05/10/16) - chest pain free at time of exam - continuous cardiac telemetry to monitor for cardiac arrhythmias - Heart healthy diet Hypokalemia - replaced. Tobacco abuse - Advised cessation CAD, Hypertension, Hyperlipidemia - resume home medications and monitor DVT prophylaxis - Lovenox 40 mg subcutaneous every 24 hours Guillermo Ansari MD May 14, 2017 10:43
--- NOTE | 2017-05-14 15:14 | EKG ---
Date Performed: 05/13/2017 Time Performed: 23:40:23 PTAGE: 46 years EKG: Sinus rhythm WITH SHORT HI INTERVAL ST DEVIATION AND MODERATE T-WAVE ABNORMALITY, CONSIDER LATERAL ISCHEMIA ABNOR MAL ECG PREVIOUS TRACING : 05/13/2017 16.10 Compared to prior tracing no significant change DOCTOR: Omer Stovall Interpretating Date/Time 05/14/2017 15:13:49
--- NOTE | 2017-05-14 15:16 | EKG ---
Date Performed: 05/14/2017 Time Performed: 05:04:37 PTAGE: 46 years EKG: Sinus rhythm WITH SHORT AL INTERVAL ST DEVIATION AND MODERATE T-WAVE ABNORMALITY, CONSIDER ANTEROLATERAL ISCHEMIA ABNORMAL ECG PREVIOUS TRACING : 05/13/2017 23.40 Compared to prior tracing no significant change DOCTOR: Omer Stovall Interpretating Date/Time 05/14/2017 15:15:28
--- NOTE | 2017-05-14 15:16 | EKG ---
Date Performed: 05/13/2017 Time Performed: 16:10:04 PTAGE: 46 years EKG: Sinus rhythm WITH SHORT ID INTERVAL ST DEVIATION AND MODERATE T-WAVE ABNORMALITY, CONSIDER LATERAL ISCHEMIA ABNOR MAL ECG PREVIOUS TRACING 05/10/17 @23.44 DOCTOR: Omer Stovall Interpretating Date/Time 05/14/2017 15:14:54
[2017-05-14 20:51] LABS: AUTOMATED NEUTROPHIL # 11.3 TH/MM3 (1.8-7.7); BASOPHIL % 0.1 % (0.0-2.0); BICARBONATE 27.2 MEQ/L (21.0-32.0); CALCIUM 8.4 MG/DL (8.5-10.1); CREATININE 1.15 MG/DL (0.50-1.00); HEMATOCRIT 42.3 % (35.0-46.0); HEMOGLOBIN 14.2 GM/DL (11.6-15.3); LYMPH % 6.5 % (9.0-44.0); LYMPHOCYTE # 0.8 TH/MM3 (1.0-4.8); MEAN CORPUSCULAR HEMOGLOBIN 31.3 PG (27.0-34.0); MEAN CORPUSCULAR HGB CONC 33.7 % (32.0-36.0); MEAN PLATELET VOLUME 8.9 FL (7.0-11.0); MONO % 7.3 % (0.0-8.0); NEUT % 86.1 % (16.0-70.0); PLATELET COUNT 236 TH/MM3 (150-450); RED BLOOD COUNT 4.55 MIL/MM3 (4.00-5.30); RED CELL DISTRIBUTION WIDTH 13.7 % (11.6-17.2); WHITE BLOOD COUNT 13.1 TH/MM3 (4.0-11.0)
[2017-05-14 20:55] LABS: TROPONIN I 0.02 NG/ML (0.02-0.05)
[2017-05-14] MEDS: ENOXAPARIN SODIUM 40 MG/0.4 ML SYRINGE SQ SCH (21:13)
[2017-05-14] MEDS: ACETAMINOPHEN 325 MG TAB PO PRN (21:22)
[2017-05-14 22:34] LABS: BANDS 2 % (0-6); LYMPHOCYTES 7 % (9-44); METAMYELOCYTES 1 % (0-1); MONOCYTES 5 % (0-8); MYELOCYTES 1 % (0-0); NEUTROPHIL # MANUAL DIFF 11.5 TH/MM3 (1.8-7.7); POLYS (SEG NEUTROPHILS) 84 % (16-70)
[2017-05-14 22:36] LABS: TOXIC GRANULATION 1+ (NORMAL)
[2017-05-15] VITALS (13 sets, daily range): BP systolic 135–183; BP diastolic 69–109; PULSE 63–92; RESP 16–18; TEMP 98–98.9; O2SAT 86–96
[2017-05-15] MEDS: methylPREDNISolone SOD SUCC 40 MG/1 ML VIAL IV PUSH SCH ×3 (03:22→17:35)
[2017-05-15] MEDS: RESP: ALBUTEROL 2.5 MG/IPRATROPIUM 0.5 MG NEB (SCH) NEB ×3 (03:52→16:39)
[2017-05-15] MEDS: ASPIRIN EC 81 MG TABEC PO SCH (08:15)
[2017-05-15] MEDS: METOPROLOL TARTRATE 25 MG TAB PO SCH ×2 (08:15→22:07)
[2017-05-15] MEDS: LISINOPRIL 20 MG TAB PO SCH (08:15)
[2017-05-15] MEDS: LEVOFLOXACIN 750 MG TAB PO SCH (08:15)
[2017-05-15] MEDS: SODIUM CHLORIDE 0.9% FLUSH 10 ML FLUSH IV FLUSH SCH ×2 (08:15→22:07)
[2017-05-15] MEDS: ATORVASTATIN 20 MG TAB PO SCH (08:15)
[2017-05-15] MEDS: FAMOTIDINE 20 MG TAB PO SCH ×2 (08:15→22:07)
[2017-05-15] MEDS: BUDESONIDE-FORMOTEROL 160/4.5 MCG INHALER INH SCH ×2 (08:16→21:00)
--- NOTE | 2017-05-15 11:41 | HHI.PR ---
Subjective Remarks in no acute distress. looks more comfortable today. sob has improved. Objective Vitals Vital Signs Date Time Temp Pulse Resp B/P (MAP) Pulse Ox O2 Delivery O2 Flow Rate FiO2 05/15/17 08:51 96 Nasal Cannula 2.00 05/15/17 08:22 98.0 92 18 183/109 (133) 93 05/15/17 04:45 66 05/15/17 03:20 98.1 71 18 173/88 (116) 93 05/15/17 00:04 77 05/14/17 23:26 98.8 73 18 135/72 (93) 95 05/14/17 22:29 18 05/14/17 21:30 92 Nasal Cannula 2.00 05/14/17 19:41 96 18 165/77 (106) 91 Result Diagram: 05/14/17195405/14/171954 Imaging Last Impressions Chest X-Ray 05/13/17 1641 Signed Impressions: Service Date/Time: Saturday, May 13, 2017 16:50 - CONCLUSION: 1. Hyperaerated lungs characteristic of COPD. 2. No evidence of acute air space disease or congestion. Vinnie Berrios MD Objective Remarks GENERAL: This is a well-nourished, well-developed patient, in no apparent distress. CARDIOVASCULAR: Regular rate and regular rhythm without murmurs, gallops, or rubs. RESPIRATORY: bilateral wheezing. GASTROINTESTINAL: Abdomen soft, non-tender, nondistended. Normal, active bowel sounds MUSCULOSKELETAL: Extremities without clubbing, cyanosis, or edema. NEURO: Alert & Oriented x4 to person, place, time, situation. Moves all ext x4 Medications and IVs Inpatient Medications Acetaminophen (Tylenol) 650 mg Q6HR PRN PO FEVER/PAIN 1-10 Last administered on 05/14/17at 21:22; Start 05/14/17 at 11:15 Albuterol/ Ipratropium (Duoneb Neb) 1 ampule Q2HR NEB PRN NEB wheezing; Start 05/13/17 at 20:15 Aspirin (Ecotrin Ec) 81 mg DAILY PO Last administered on 05/15/17at 08:15; Start 05/14/17 at 09:00 Atorvastatin Calcium (Lipitor) 20 mg DAILY PO Last administered on 05/15/17at 08 :15; Start 05/14/17 at 09:00 Budesonide/ Formoterol Fumarate (Symbicort 160-4.5 Mcg Inh) 2 puff Q12HR INH Last administered on 05/15/17 08:16; Start 05/14/17 at 09:00 Enoxaparin Sodium (Lovenox Inj) 40 mg Q24H SQ Last administered on 05/14/17at 21: 13; Start 05/13/17 at 22:00 Famotidine (Pepcid) 20 mg Q12HR PO Last administered on 05/15/17at 08:15; Start 05/13/17 at 21:00 Influenza Virus Vaccine (Flu (Quadrivalent) Vaccine Inj) 0.5 ml ONCE ONCE IM ; Start 05/14/17 at 09:00; Stop 05/14/17 at 09:01; Status DC Levofloxacin (Levaquin) 750 mg DAILY PO Last administered on 05/15/17 08:15; Start 05/13/17 at 22:00 Lisinopril (Prinivil) 20 mg DAILY PO Last administered on 05/15/17 08:15; Start 05/14/17 at 09:00 Methylprednisolone Sodium Succinate (SoluMEDROL INJ) 40 mg Q6H IV PUSH Last administered on 05/15/17 08:16; Start 05/14/17 at 02:00 Metoprolol Tartrate (Lopressor) 25 mg BID PO Last administered on 05/15/17 08: 15; Start 05/14/17 at 09:00 Naloxone HCl (Narcan Inj) 0.4 mg UNSCH PRN IV PUSH SEE LABEL COMMENTS; Start at 20:15 Potassium Bicarb/ Potassium Chloride (K-Lyte Cl Eff) 25 meq ONCE ONCE PO Last administered on 05/13/17at 21:36; Start 05/13/17 at 20:45; Stop 05/13/17 at 20: 52; Status DC Sodium Chloride (NS Flush) 2 ml BID IV FLUSH Last administered on 05/15/17at 08: 15; Start 05/13/17 at 21:00 A/P Problem List: (1) COPD exacerbation ICD Code: J44.1 - Chronic obstructive pulmonary disease with (acute) exacerbation Status: Acute (2) Hypoxia ICD Code: R09.02 - Hypoxemia Status: Acute (3) Chest pain ICD Code: R07.9 - Chest pain, unspecified (4) Tobacco abuse ICD Code: Z72.0 - Tobacco abuse Status: Acute Assessment and Plan COPD Exacerbation with hypoxia- improving. - RA oxygen saturation 88%; 94% on 3 L supplemental oxygen - CXR with hyperinflation characteristic of COPD - no effusions or infiltrates noted. - Duonebs q6h ATC and q2h PRN wheezing - supplemental oxygen titrated to maintain oxygen saturation greater than 92% - continue IV solumedrol. - Resume Levaquin 750 mg by mouth - - Case management consultation - will need assistance with discharge planning - patient readmitted following failure to obtain outpatient prescription - negative testing for flu a and b on 05/09/16 - Physical therapy consulted -will repeat walk test today. Chest pain, atypical - troponin negative. - V5 and V6 (similar in appearance to EKGs from 05/09/16 and 05/10/16) - chest pain free at time of exam - continuous cardiac telemetry to monitor for cardiac arrhythmias - Heart healthy diet Hypokalemia - replaced. Tobacco abuse - Advised cessation CAD, Hypertension, Hyperlipidemia - continue aspirin, statin and BB- will increase lisinopril upon discharge. DVT prophylaxis - Lovenox 40 mg subcutaneous every 24 hours Discharge Planning discharge planning within the next 24-48 hrs if continues to improve clinically. Guillermo Ansari MD May 15, 2017 11:41
[2017-05-15] MEDS ORDERED: LISINOPRIL 20 MG TAB PO ONE (12:10)
[2017-05-15] MEDS ORDERED: NIFEdipine 10 MG CAP PO ONE (18:00)
[2017-05-15] MEDS: ENOXAPARIN SODIUM 40 MG/0.4 ML SYRINGE SQ SCH (22:07)
[2017-05-15] MEDS: ACETAMINOPHEN 325 MG TAB PO PRN (22:17)
[2017-05-16] VITALS (14 sets, daily range): BP systolic 108–180; BP diastolic 68–91; PULSE 65–87; RESP 16–20; TEMP 97.9–98.8; O2SAT 92–97
[2017-05-16] MEDS: methylPREDNISolone SOD SUCC 40 MG/1 ML VIAL IV PUSH SCH ×4 (01:15→23:47)
[2017-05-16] MEDS: RESP: ALBUTEROL 2.5 MG/IPRATROPIUM 0.5 MG NEB (SCH) NEB ×4 (03:12→20:46)
[2017-05-16] MEDS ORDERED: LISINOPRIL 20 MG TAB PO SCH (09:00)
[2017-05-16] MEDS: LEVOFLOXACIN 750 MG TAB PO SCH (10:12)
[2017-05-16] MEDS: METOPROLOL TARTRATE 25 MG TAB PO SCH ×2 (10:13→21:12)
[2017-05-16] MEDS: SODIUM CHLORIDE 0.9% FLUSH 10 ML FLUSH IV FLUSH SCH ×2 (10:13→21:13)
[2017-05-16] MEDS: FAMOTIDINE 20 MG TAB PO SCH ×2 (10:13→21:12)
[2017-05-16] MEDS: ASPIRIN EC 81 MG TABEC PO SCH (10:13)
[2017-05-16] MEDS: ATORVASTATIN 20 MG TAB PO SCH (10:13)
[2017-05-16] MEDS: ACETAMINOPHEN 325 MG TAB PO PRN ×2 (10:14→21:12)
[2017-05-16] MEDS: BUDESONIDE-FORMOTEROL 160/4.5 MCG INHALER INH SCH ×2 (10:15→21:13)
--- NOTE | 2017-05-16 15:24 | HHI.PR ---
Subjective Remarks WAS ON OXYGEN EARLIER TODAY SHE JUST TOOK IT OFF HERSELF NOT BEEN AMBULATING MUCH DENIES ANY SOB SOME COUGH LESS CONGESTION DW RN AND PT Objective Vitals Vital Signs Date Time Temp Pulse Resp B/P (MAP) Pulse Ox O2 Delivery O2 Flow Rate FiO2 05/16/17 10:35 96 Nasal Cannula 2.00 05/16/17 08:00 97.9 72 20 108/88 (95) 95 05/16/17 07:48 79 05/16/17 05:05 98.1 80 16 167/91 (116) 97 05/16/17 04:00 65 05/16/17 03:15 95 Nasal Cannula 2.00 05/16/17 02:24 Nasal Cannula 2.00 05/16/17 00:53 98.2 80 16 130/68 (88) 95 05/16/17 00:00 65 05/15/17 21:26 98.4 81 16 135/69 (91) 96 05/15/17 20:30 84 05/15/17 17:51 175/90 (118) 05/15/17 17:51 95 05/15/17 17:45 175/90 (118) 05/15/17 17:19 98.9 89 18 182/96 (124) 91 Result Diagram: 05/14/17195405/14/171954 Other Results Laboratory Tests Test 05/13/17 17:20 05/13/17 23:33 05/14/17 19:55 White Blood Count 15.0 TH/MM3 13.1 TH/MM3 Red Blood Count 4.80 MIL/MM3 4.55 MIL/MM3 Hemoglobin 15.2 GM/DL 14.2 GM/DL Hematocrit 44.4 % 42.3 % Mean Corpuscular Volume 92.6 FL 93.0 FL Mean Corpuscular Hemoglobin 31.6 PG 31.3 PG Mean Corpuscular Hemoglobin Concent 34.2 % 33.7 % Red Cell Distribution Width 13.9 % 13.7 % Platelet Count 237 TH/MM3 236 TH/MM3 Mean Platelet Volume 8.6 FL 8.9 FL Neutrophils (%) (Auto) 84.3 % 86.1 % Lymphocytes (%) (Auto) 9.3 % 6.5 % Monocytes (%) (Auto) 6.2 % 7.3 % Eosinophils (%) (Auto) 0.1 % 0.0 % Basophils (%) (Auto) 0.1 % 0.1 % Neutrophils # (Auto) 12.7 TH/MM3 11.3 TH/MM3 Lymphocytes # (Auto) 1.4 TH/MM3 0.8 TH/MM3 Monocytes # (Auto) 0.9 TH/MM3 1.0 TH/MM3 Eosinophils # (Auto) 0.0 TH/MM3 0.0 TH/MM3 Basophils # (Auto) 0.0 TH/MM3 0.0 TH/MM3 CBC Comment AUTO DIFF AUTO DIFF Differential Total Cells Counted 100 100 Neutrophils % (Manual) 92 % 84 % Band Neutrophils % 1 % 2 % Lymphocytes % 4 % 7 % Monocytes % 3 % 5 % Neutrophils # (Manual) 14.0 TH/MM3 11.5 TH/MM3 Differential Comment FINAL DIFF MANUAL FINAL DIFF MANUAL Toxic Granulation 1+ 1+ Platelet Estimate NORMAL NORMAL Platelet Morphology Comment NORMAL NORMAL Blood Urea Nitrogen 16 MG/DL 19 MG/DL Creatinine 0.55 MG/DL 1.15 MG/DL Random Glucose 106 MG/DL 271 MG/DL Total Protein 5.6 GM/DL Calcium Level 7.0 MG/DL 8.4 MG/DL Magnesium Level 1.8 MG/DL Sodium Level 142 MEQ/L 136 MEQ/L Potassium Level 3.3 MEQ/L 4.1 MEQ/L Chloride Level 109 MEQ/L 100 MEQ/L Carbon Dioxide Level 25.7 MEQ/L 27.2 MEQ/L Anion Gap 7 MEQ/L 9 MEQ/L Estimat Glomerular Filtration Rate 118 ML/MIN 50 ML/MIN Protein Corrected Calcium 7.8 MG/DL Total Creatine Kinase 170 U/L 124 U/L 88 U/L Creatine Kinase MB 4.7 NG/ML Troponin I 0.04 NG/ML 0.03 NG/ML 0.02 NG/ML Metamyelocytes 1 % Myelocytes 1 % Imaging Last Impressions Chest X-Ray 05/13/17 1641 Signed Impressions: Service Date/Time: Saturday, May 13, 2017 16:50 - CONCLUSION: 1. Hyperaerated lungs characteristic of COPD. 2. No evidence of acute air space disease or congestion. Vinnie Berrios MD Objective Remarks GENERAL: AWAKE AND ALERT AND ORIENTED X3 BREATHING BETTER SKIN: Warm and dry. HEAD: Atraumatic. Normocephalic. EYES: Pupils equal and round. No scleral icterus. No injection or drainage. EOMI ENT: No nasal bleeding or discharge. Mucous membranes pink and moist.TONGUE MIDLINE NECK: Trachea midline. No JVD. SUPPLE CARDIOVASCULAR: Regular rate and rhythm. S1. S2 NO S3 OR S4 RESPIRATORY: No accessory muscle use.RHONCHI AND SCATTERED WHEEZES BILATERALLY Breath sounds equal bilaterally. GASTROINTESTINAL: Abdomen soft, non-tender, nondistended. Hepatic and splenic margins not palpable. MUSCULOSKELETAL: Extremities without clubbing, cyanosis, or edema. No obvious deformities. NEUROLOGICAL: Awake and alert. No obvious cranial nerve deficits. Motor grossly within normal limits. Five out of 5 muscle strength in the arms and legs. Normal speech. PSYCHIATRIC: Appropriate mood and affect; insight and judgment normal. Medications and IVs Current Medications Sodium Chloride (NS Flush) 2 ml UNSCH PRN IVF FLUSH AFTER USING IV ACCESS; Start 05/13/17 at 16:45; Stop 05/13/17 at 20:24; Status DC Albuterol/ Ipratropium (Duoneb Neb) 1 ampule Q15M INH Last administered on at 17:07; Start 05/13/17 at 16:45; Stop 05/13/17 at 17:16; Status DC Sodium Chloride (NS Flush) 2 ml UNSCH PRN IV FLUSH FLUSH AFTER USING IV ACCESS ; Start 05/13/17 at 20:15 Sodium Chloride (NS Flush) 2 ml BID IV FLUSH Last administered on 05/16/17at 10: 13; Start 05/13/17 at 21:00 Naloxone HCl (Narcan Inj) 0.4 mg UNSCH PRN IV PUSH SEE LABEL COMMENTS; Start at 20:15 Albuterol/ Ipratropium (Duoneb Neb) 1 ampule Q6HR NEB NEB Last administered on 05/16/17at 10:33; Start 05/13/17 at 22:00 Albuterol/ Ipratropium (Duoneb Neb) 1 ampule Q2HR NEB PRN NEB wheezing; Start 05/13/17 at 20:15 Famotidine (Pepcid) 20 mg Q12HR PO Last administered on 05/16/17at 10:13; Start 05/13/17 at 21:00 Methylprednisolone Sodium Succinate (SoluMEDROL INJ) 40 mg Q6H IV PUSH ; Start 05/13/17 at 21:00; Stop 05/13/17 at 21:35; Status DC Potassium Bicarb/ Potassium Chloride (K-Lyte Cl Eff) 25 meq ONCE ONCE PO Last administered on 05/13/17at 21:36; Start 05/13/17 at 20:45; Stop 05/13/17 at 20: 52; Status DC Methylprednisolone Sodium Succinate (SoluMEDROL INJ) 125 mg ONCE ONCE IV PUSH Last administered on 05/13/17at 22:30; Start 05/13/17 at 21:45; Stop 05/13/17 at 21: 46; Status DC Methylprednisolone Sodium Succinate (SoluMEDROL INJ) 40 mg Q6H IV PUSH Last administered on 05/15/17at 08:16; Start 05/14/17 at 02:00; Stop 05/15/17 at 11:40 ; Status DC Enoxaparin Sodium (Lovenox Inj) 40 mg Q24H SQ Last administered on 05/15/17at 22 :07; Start 05/13/17 at 22:00 Levofloxacin (Levaquin) 750 mg DAILY PO Last administered on 05/16/17at 10:12; Start 05/13/17 at 22:00 Aspirin (Ecotrin Ec) 81 mg DAILY PO Last administered on 05/16/17at 10:13; Start 05/14/17 at 09:00 Atorvastatin Calcium (Lipitor) 20 mg DAILY PO Last administered on 05/16/17at 10 :13; Start 05/14/17 at 09:00 Lisinopril (Prinivil) 20 mg DAILY PO Last administered on 05/15/17at 08:15; Start 05/14/17 at 09:00; Stop 05/15/17 at 11:45; Status DC Metoprolol Tartrate (Lopressor) 25 mg BID PO Last administered on 05/16/17at 10: 13; Start 05/14/17 at 09:00 Budesonide/ Formoterol Fumarate (Symbicort 160-4.5 Mcg Inh) 2 puff Q12HR INH Last administered on 05/16/17at 10:15; Start 05/14/17 at 09:00 Influenza Virus Vaccine (Flu (Quadrivalent) Vaccine Inj) 0.5 ml ONCE ONCE IM ; Start 05/14/17 at 09:00; Stop 05/14/17 at 09:01; Status DC Acetaminophen (Tylenol) 650 mg Q6HR PRN PO FEVER/PAIN 1-10 Last administered on 05/16/17at 10:14; Start 05/14/17 at 11:15 Methylprednisolone Sodium Succinate (SoluMEDROL INJ) 40 mg Q8H IV PUSH Last administered on 05/16/17at 10:12; Start 05/15/17 at 16:00 Lisinopril (Prinivil) 40 mg DAILY PO Last administered on 05/16/17at 10:13; Start 05/16/17 at 09:00 Lisinopril (Prinivil) 20 mg ONCE ONCE PO Last administered on 05/15/17at 14:14 ; Start 05/15/17 at 12:10; Stop 05/15/17 at 12:11; Status DC Nifedipine (Procardia) 30 mg NOW ONCE PO Last administered on 05/15/17at 17:59 ; Start 05/15/17 at 18:00; Stop 05/15/17 at 18:01; Status DC A/P Problem List: (1) COPD exacerbation ICD Code: J44.1 - Chronic obstructive pulmonary disease with (acute) exacerbation Status: Acute (2) Hypoxia ICD Code: R09.02 - Hypoxemia Status: Acute (3) Chest pain ICD Code: R07.9 - Chest pain, unspecified (4) Tobacco abuse ICD Code: Z72.0 - Tobacco abuse Status: Acute Assessment and Plan COPD Exacerbation with hypoxia- improving. - RA oxygen saturation 88%; 94% on 3 L supplemental oxygen TRY TO WEAN OFF TODAY - CXR with hyperinflation characteristic of COPD - no effusions or infiltrates noted. - Duonebs q6h ATC and q2h PRN wheezing - supplemental oxygen titrated to maintain oxygen saturation greater than 92% - continue IV solumedrol. - Resume Levaquin 750 mg by mouth - - Case management consultation - will need assistance with discharge planning - patient readmitted following failure to obtain outpatient prescription - negative testing for flu a and b on 05/09/16 - Physical therapy consulted -will repeat walk test today. Chest pain, atypical - troponin negative. - V5 and V6 (similar in appearance to EKGs from 05/09/16 and 05/10/16) - chest pain free at time of exam - continuous cardiac telemetry to monitor for cardiac arrhythmias - Heart healthy diet Hypokalemia - replaced. Tobacco abuse - Advised cessation CAD, Hypertension, Hyperlipidemia - continue aspirin, statin and BB- will increase lisinopril upon discharge. DVT prophylaxis - Lovenox 40 mg subcutaneous every 24 hours INCREASE ACTIVITY DW RN AND CM AND PT Discharge Planning [facility] WAN TOMORROW James Casanova DO May 16, 2017 15:23
[2017-05-16] MEDS: ENOXAPARIN SODIUM 40 MG/0.4 ML SYRINGE SQ SCH (21:12)
[2017-05-17] VITALS: BP 168/82; PULSE 68; RESP 16; TEMP 98.2; O2SAT 93
[2017-05-17 04:00] VITALS: BP 156/82; PULSE 69; PULSE 71; RESP 16; TEMP 98.2; O2SAT 93
[2017-05-17] MEDS: RESP: ALBUTEROL 2.5 MG/IPRATROPIUM 0.5 MG NEB (SCH) NEB ×2 (04:11→09:03)
[2017-05-17] MEDS: ACETAMINOPHEN 325 MG TAB PO PRN (05:44)
[2017-05-17 08:00] VITALS: BP 185/97; PULSE 81; RESP 20; TEMP 98.6; O2SAT 92
[2017-05-17 08:04] VITALS: PULSE 86
[2017-05-17] MEDS ORDERED: amLODIPine BESYLATE 5 MG TAB PO SCH ×2 (09:00→21:00)
[2017-05-17 09:21] LABS: BASOPHIL % 0.1 % (0.0-2.0); HEMATOCRIT 44.6 % (35.0-46.0); HEMOGLOBIN 15.1 GM/DL (11.6-15.3); LYMPH % 13.3 % (9.0-44.0); LYMPHOCYTE # 2.3 TH/MM3 (1.0-4.8); MEAN CELL VOLUME 91.9 FL (80.0-100.0); MEAN CORPUSCULAR HEMOGLOBIN 31.1 PG (27.0-34.0); MEAN CORPUSCULAR HGB CONC 33.8 % (32.0-36.0); MEAN PLATELET VOLUME 8.3 FL (7.0-11.0); MONO % 6.7 % (0.0-8.0); MONOCYTE # 1.2 TH/MM3 (0-0.9); NEUT % 79.9 % (16.0-70.0); PLATELET COUNT 296 TH/MM3 (150-450); RED BLOOD COUNT 4.86 MIL/MM3 (4.00-5.30); RED CELL DISTRIBUTION WIDTH 13.6 % (11.6-17.2); WHITE BLOOD COUNT 17.5 TH/MM3 (4.0-11.0)
[2017-05-17] MEDS: FAMOTIDINE 20 MG TAB PO SCH (09:37)
[2017-05-17] MEDS: LEVOFLOXACIN 750 MG TAB PO SCH (09:37)
[2017-05-17] MEDS: METOPROLOL TARTRATE 25 MG TAB PO SCH (09:37)
[2017-05-17] MEDS: SODIUM CHLORIDE 0.9% FLUSH 10 ML FLUSH IV FLUSH SCH (09:37)
[2017-05-17] MEDS: ASPIRIN EC 81 MG TABEC PO SCH (09:37)
[2017-05-17] MEDS: ATORVASTATIN 20 MG TAB PO SCH (09:37)
[2017-05-17] MEDS: methylPREDNISolone SOD SUCC 40 MG/1 ML VIAL IV PUSH SCH (09:38)
[2017-05-17] MEDS: BUDESONIDE-FORMOTEROL 160/4.5 MCG INHALER INH SCH (09:39)
[2017-05-17 09:56] LABS: AST (GOT) 22 U/L (15-37); BICARBONATE 30.2 MEQ/L (21.0-32.0); BLOOD UREA NITROGEN 21 MG/DL (7-18); CALCIUM 8.6 MG/DL (8.5-10.1); CHLORIDE 102 MEQ/L (98-107); CREATININE 0.68 MG/DL (0.50-1.00); GLOMERULAR FILTRATION RATE 92 ML/MIN (>89); GLUCOSE,RANDOM 116 MG/DL (74-106); MAGNESIUM 2.5 MG/DL (1.5-2.5); SODIUM (NA) 138 MEQ/L (136-145)
[2017-05-17 09:58] LABS: ALT (GPT) 50 U/L (10-53); PHOSPHORUS 3.2 MG/DL (2.5-4.9)
[2017-05-17 10:08] LABS: ALKALINE PHOSPHATASE 85 U/L (45-117); FREE T4 1.19 NG/DL (0.76-1.46); TOTAL BILIRUBIN ADULT 0.2 MG/DL (0.2-1.0); TOTAL PROTEIN 6.5 GM/DL (6.4-8.2)
[2017-05-17 10:21] LABS: BANDS 4 % (0-6); LYMPHOCYTES 11 % (9-44); MONOCYTES 8 % (0-8); MYELOCYTES 5 % (0-0); NEUTROPHIL # MANUAL DIFF 14.2 TH/MM3 (1.8-7.7); POLYS (SEG NEUTROPHILS) 72 % (16-70)
--- NOTE | 2017-05-17 10:46 | HHI.PR ---
Subjective Remarks The patient is a 46-year-old homeless female with a history of coronary artery disease status post multiple stent placement, hypertension, hyperlipidemia, nephrolithiasis, and COPD who presents to the emergency department for evaluation of severe shortness of breath. The patient was admitted for observation from 05/09 - 05/12 and was discharged after she passed a walk test. She states that she is homeless, was awaiting funds to obtain her prescriptions from discharge, and became progressively more short of breath with wheezing and EMS was alerted. She is seen in the emergency room. She reports that she never felt that her breathing got better during her last admission but does acknowledge passing and walking cast prior to discharge. She states that her symptoms began around New 's Day and included fever, chills, productive cough with yellowish-green sputum, wheezing, and shortness of breath. She also reports some chest pain upon arrival in the emergency room today but has since resolved. That pain is described as a burning and she feels it is different than the pain she had prior to her cardiac stent placement. She has not had Levaquin since discharge on 05/12/2017. She denies any nausea, vomiting, or diarrhea. She denies any fever since discharge. 05-16 WAS ON OXYGEN EARLIER TODAY SHE JUST TOOK IT OFF HERSELF NOT BEEN AMBULATING MUCH DENIES ANY SOB SOME COUGH LESS CONGESTION DW RN AND PT 05-17 OFF OF OXYGEN WANTS TO GO BACK TO THE STREETS DC TO HOME MEDS ADJUSTED NEEDS FOLLOW UP NEEDS TO STOP SMOKING Objective Vitals Vital Signs Date Time Temp Pulse Resp B/P (MAP) Pulse Ox O2 Delivery O2 Flow Rate FiO2 05/17/17 08:04 86 05/17/17 08:00 98.6 81 20 185/97 (126) 92 05/17/17 04:00 71 05/17/17 04:00 98.2 69 16 156/82 (106) 93 05/17/17 00:00 68 05/17/17 00:00 98.2 68 16 168/82 (110) 93 05/16/17 20:47 93 05/16/17 20:30 71 05/16/17 20:00 98.6 74 16 156/77 (103) 93 05/16/17 16:00 98.8 87 20 180/91 (120) 92 05/16/17 15:40 70 05/16/17 12:00 98.2 76 20 165/79 (107) 95 I/O 05/16/17 05/16/17 05/16/17 05/17/17 05/17/17 05/17/17 07:00 15:00 23:00 07:00 15:00 23:00 Intake Total 960 ml Balance 960 ml Intake Oral 960 ml # Voids 4 # Bowel Movements 1 Result Diagram: 05/17/17 0810 05/17/17 0810 Other Results Laboratory Tests Test 05/14/17 19:55 05/17/17 08:10 White Blood Count 13.1 TH/MM3 17.5 TH/MM3 Red Blood Count 4.55 MIL/MM3 4.86 MIL/MM3 Hemoglobin 14.2 GM/DL 15.1 GM/DL Hematocrit 42.3 % 44.6 % Mean Corpuscular Volume 93.0 FL 91.9 FL Mean Corpuscular Hemoglobin 31.3 PG 31.1 PG Mean Corpuscular Hemoglobin Concent 33.7 % 33.8 % Red Cell Distribution Width 13.7 % 13.6 % Platelet Count 236 TH/MM3 296 TH/MM3 Mean Platelet Volume 8.9 FL 8.3 FL Neutrophils (%) (Auto) 86.1 % 79.9 % Lymphocytes (%) (Auto) 6.5 % 13.3 % Monocytes (%) (Auto) 7.3 % 6.7 % Eosinophils (%) (Auto) 0.0 % 0.0 % Basophils (%) (Auto) 0.1 % 0.1 % Neutrophils # (Auto) 11.3 TH/MM3 14.0 TH/MM3 Lymphocytes # (Auto) 0.8 TH/MM3 2.3 TH/MM3 Monocytes # (Auto) 1.0 TH/MM3 1.2 TH/MM3 Eosinophils # (Auto) 0.0 TH/MM3 0.0 TH/MM3 Basophils # (Auto) 0.0 TH/MM3 0.0 TH/MM3 CBC Comment AUTO DIFF AUTO DIFF Differential Total Cells Counted 100 100 Neutrophils % (Manual) 84 % 72 % Band Neutrophils % 2 % 4 % Lymphocytes % 7 % 11 % Monocytes % 5 % 8 % Neutrophils # (Manual) 11.5 TH/MM3 14.2 TH/MM3 Metamyelocytes 1 % Myelocytes 1 % 5 % Differential Comment FINAL DIFF MANUAL FINAL DIFF MANUAL Toxic Granulation 1+ Platelet Estimate NORMAL NORMAL Platelet Morphology Comment NORMAL NORMAL Blood Urea Nitrogen 19 MG/DL 21 MG/DL Creatinine 1.15 MG/DL 0.68 MG/DL Random Glucose 271 MG/DL 116 MG/DL Calcium Level 8.4 MG/DL 8.6 MG/DL Sodium Level 136 MEQ/L 138 MEQ/L Potassium Level 4.1 MEQ/L 3.9 MEQ/L Chloride Level 100 MEQ/L 102 MEQ/L Carbon Dioxide Level 27.2 MEQ/L 30.2 MEQ/L Anion Gap 9 MEQ/L 6 MEQ/L Estimat Glomerular Filtration Rate 50 ML/MIN 92 ML/MIN Total Creatine Kinase 88 U/L Troponin I 0.02 NG/ML Red Cell Morphology Comment NORMAL Total Protein 6.5 GM/DL Albumin 3.0 GM/DL Phosphorus Level 3.2 MG/DL Magnesium Level 2.5 MG/DL Alkaline Phosphatase 85 U/L Aspartate Amino Transf (AST/SGOT) 22 U/L Alanine Aminotransferase (ALT/SGPT) 50 U/L Total Bilirubin 0.2 MG/DL Free Thyroxine 1.19 NG/DL Thyroid Stimulating Hormone 3rd Gen 0.597 uIU/ML Imaging Last Impressions Chest X-Ray 05/13/17 1641 Signed Impressions: Service Date/Time: Saturday, May 13, 2017 16:50 - CONCLUSION: 1. Hyperaerated lungs characteristic of COPD. 2. No evidence of acute air space disease or congestion. Vinnie Berrios MD Objective Remarks GENERAL: AWAKE AND ALERT AND ORIENTED X3 BREATHING BETTER SKIN: Warm and dry. HEAD: Atraumatic. Normocephalic. EYES: Pupils equal and round. No scleral icterus. No injection or drainage. EOMI ENT: No nasal bleeding or discharge. Mucous membranes pink and moist.TONGUE MIDLINE NECK: Trachea midline. No JVD. SUPPLE CARDIOVASCULAR: Regular rate and rhythm. S1. S2 NO S3 OR S4 RESPIRATORY: No accessory muscle use.RHONCHI AND SCATTERED WHEEZES BILATERALLY Breath sounds equal bilaterally. GASTROINTESTINAL: Abdomen soft, non-tender, nondistended. Hepatic and splenic margins not palpable. MUSCULOSKELETAL: Extremities without clubbing, cyanosis, or edema. No obvious deformities. NEUROLOGICAL: Awake and alert. No obvious cranial nerve deficits. Motor grossly within normal limits. Five out of 5 muscle strength in the arms and legs. Normal speech. PSYCHIATRIC: Appropriate mood and affect; insight and judgment normal. Medications and IVs Current Medications Sodium Chloride (NS Flush) 2 ml UNSCH PRN IVF FLUSH AFTER USING IV ACCESS; Start 05/13/17 at 16:45; Stop 05/13/17 at 20:24; Status DC Albuterol/ Ipratropium (Duoneb Neb) 1 ampule Q15M INH Last administered on at 17:07; Start 05/13/17 at 16:45; Stop 05/13/17 at 17:16; Status DC Sodium Chloride (NS Flush) 2 ml UNSCH PRN IV FLUSH FLUSH AFTER USING IV ACCESS ; Start 05/13/17 at 20:15 Sodium Chloride (NS Flush) 2 ml BID IV FLUSH Last administered on 05/17/17at 09: 37; Start 05/13/17 at 21:00 Naloxone HCl (Narcan Inj) 0.4 mg UNSCH PRN IV PUSH SEE LABEL COMMENTS; Start at 20:15 Albuterol/ Ipratropium (Duoneb Neb) 1 ampule Q6HR NEB NEB Last administered on 05/17/17at 09:03; Start 05/13/17 at 22:00 Albuterol/ Ipratropium (Duoneb Neb) 1 ampule Q2HR NEB PRN NEB wheezing; Start 05/13/17 at 20:15 Famotidine (Pepcid) 20 mg Q12HR PO Last administered on 05/17/17at 09:37; Start 05/13/17 at 21:00 Methylprednisolone Sodium Succinate (SoluMEDROL INJ) 40 mg Q6H IV PUSH ; Start 05/13/17 at 21:00; Stop 05/13/17 at 21:35; Status DC Potassium Bicarb/ Potassium Chloride (K-Lyte Cl Eff) 25 meq ONCE ONCE PO Last administered on 05/13/17at 21:36; Start 05/13/17 at 20:45; Stop 05/13/17 at 20: 52; Status DC Methylprednisolone Sodium Succinate (SoluMEDROL INJ) 125 mg ONCE ONCE IV PUSH Last administered on 05/13/17at 22:30; Start 05/13/17 at 21:45; Stop 05/13/17 at 21: 46; Status DC Methylprednisolone Sodium Succinate (SoluMEDROL INJ) 40 mg Q6H IV PUSH Last administered on 05/15/17at 08:16; Start 05/14/17 at 02:00; Stop 05/15/17 at 11:40 ; Status DC Enoxaparin Sodium (Lovenox Inj) 40 mg Q24H SQ Last administered on 05/16/17at 21 :12; Start 05/13/17 at 22:00 Levofloxacin (Levaquin) 750 mg DAILY PO Last administered on 05/17/17at 09:37; Start 05/13/17 at 22:00 Aspirin (Ecotrin Ec) 81 mg DAILY PO Last administered on 05/17/17at 09:37; Start 05/14/17 at 09:00 Atorvastatin Calcium (Lipitor) 20 mg DAILY PO Last administered on 05/17/17at 09 :37; Start 05/14/17 at 09:00 Lisinopril (Prinivil) 20 mg DAILY PO Last administered on 05/15/17at 08:15; Start 05/14/17 at 09:00; Stop 05/15/17 at 11:45; Status DC Metoprolol Tartrate (Lopressor) 25 mg BID PO Last administered on 05/17/17at 09: 37; Start 05/14/17 at 09:00 Budesonide/ Formoterol Fumarate (Symbicort 160-4.5 Mcg Inh) 2 puff Q12HR INH Last administered on 05/17/17at 09:39; Start 05/14/17 at 09:00 Influenza Virus Vaccine (Flu (Quadrivalent) Vaccine Inj) 0.5 ml ONCE ONCE IM ; Start 05/14/17 at 09:00; Stop 05/14/17 at 09:01; Status DC Acetaminophen (Tylenol) 650 mg Q6HR PRN PO FEVER/PAIN 1-10 Last administered on 05/17/17at 05:44; Start 05/14/17 at 11:15 Methylprednisolone Sodium Succinate (SoluMEDROL INJ) 40 mg Q8H IV PUSH Last administered on 05/17/17at 09:38; Start 05/15/17 at 16:00 Lisinopril (Prinivil) 40 mg DAILY PO Last administered on 05/16/17at 10:13; Start 05/16/17 at 09:00; Stop 05/16/17 at 15:27; Status DC Lisinopril (Prinivil) 20 mg ONCE ONCE PO Last administered on 05/15/17at 14:14 ; Start 05/15/17 at 12:10; Stop 05/15/17 at 12:11; Status DC Nifedipine (Procardia) 30 mg NOW ONCE PO Last administered on 05/15/17at 17:59 ; Start 05/15/17 at 18:00; Stop 05/15/17 at 18:01; Status DC Amlodipine Besylate (Norvasc) 5 mg DAILY PO Last administered on 05/17/17at 09: 37; Start 05/17/17 at 09:00; Stop 05/17/17 at 10:40; Status DC Amlodipine Besylate (Norvasc) 5 mg BID PO ; Start 05/17/17 at 21:00; Status UNV A/P Problem List: (1) COPD exacerbation ICD Code: J44.1 - Chronic obstructive pulmonary disease with (acute) exacerbation Status: Acute (2) Hypoxia ICD Code: R09.02 - Hypoxemia Status: Acute (3) Chest pain ICD Code: R07.9 - Chest pain, unspecified (4) Tobacco abuse ICD Code: Z72.0 - Tobacco abuse Status: Acute Assessment and Plan COPD Exacerbation with hypoxia- improving. - RA oxygen saturation 88%; 94% on 3 L supplemental oxygen TRY TO WEAN OFF TODAY - CXR with hyperinflation characteristic of COPD - no effusions or infiltrates noted. - Duonebs q6h ATC and q2h PRN wheezing - supplemental oxygen titrated to maintain oxygen saturation greater than 92% - continue IV solumedrol. - Resume Levaquin 750 mg by mouth - - Case management consultation - will need assistance with discharge planning - patient readmitted following failure to obtain outpatient prescription - negative testing for flu a and b on 05/09/16 - Physical therapy consulted -will repeat walk test today. Chest pain, atypical - troponin negative. - V5 and V6 (similar in appearance to EKGs from 05/09/16 and 05/10/16) - chest pain free at time of exam - continuous cardiac telemetry to monitor for cardiac arrhythmias - Heart healthy diet Hypokalemia - replaced. Tobacco abuse - Advised cessation CAD, Hypertension, Hyperlipidemia - continue aspirin, statin and BB- will increase NORVASC upon discharge. DVT prophylaxis - Lovenox 40 mg subcutaneous every 24 hours INCREASE ACTIVITY DW RN AND CM AND PT WANTS TO GO HOME TODAY DW RN AND PT Discharge Planning DC TODAY GrJames john DO May 17, 2017 10:46
[2017-05-17] MEDS ORDERED: LEVA750T9 PO (10:52)
[2017-05-17] MEDS ORDERED: NICO14DI4 TD (10:52)
[2017-05-17] MEDS ORDERED: Budeson-Formot 160-4.5 Mcg Inh INH (10:52)
[2017-05-17] MEDS ORDERED: PRED20 PO (10:52)
[2017-05-17] MEDS ORDERED: METO25TA3 PO (10:52)
[2017-05-17] MEDS ORDERED: ASPI81TA23 PO (10:52)
[2017-05-17] MEDS ORDERED: FAMO20TA2 PO (10:52)
[2017-05-17] MEDS ORDERED: ATOR20TA15 PO (10:52)
[2017-05-17] MEDS ORDERED: VENTAER INH (10:52)
[2017-05-17] MEDS ORDERED: AMLO5 PO (10:52)
--- NOTE | 2017-05-17 10:55 | HHI.DS ---
Discharge Summary Admission Date May 13, 2017 at 20:16 Discharge Date: May 17, 2017 Admitting Diagnosis COPD exacerbation, hypoxia (1) COPD exacerbation ICD Code: J44.1 - Chronic obstructive pulmonary disease with (acute) exacerbation Diagnosis: Principal Status: Acute (2) Hypoxia ICD Code: R09.02 - Hypoxemia Diagnosis: Principal Status: Acute (3) Chest pain ICD Code: R07.9 - Chest pain, unspecified Diagnosis: Secondary (4) Tobacco abuse ICD Code: Z72.0 - Tobacco abuse Diagnosis: Principal Status: Acute (5) Homelessness ICD Code: Z59.0 - Homelessness Diagnosis: Secondary Status: Acute (6) Noncompliance ICD Code: Z91.19 - Patient's noncompliance with other medical treatment and regimen Diagnosis: Secondary Status: Acute Procedures NONE Brief History - From Admission The patient is a 46-year-old homeless female with a history of coronary artery disease status post multiple stent placement, hypertension, hyperlipidemia, nephrolithiasis, and COPD who presents to the emergency department for evaluation of severe shortness of breath. The patient was admitted for observation from 05/09 - 05/12 and was discharged after she passed a walk test. She states that she is homeless, was awaiting funds to obtain her prescriptions from discharge, and became progressively more short of breath with wheezing and EMS was alerted. She is seen in the emergency room. She reports that she never felt that her breathing got better during her last admission but does acknowledge passing and walking cast prior to discharge. She states that her symptoms began around New Year's Day and included fever, chills, productive cough with yellowish-green sputum, wheezing, and shortness of breath. She also reports some chest pain upon arrival in the emergency room today but has since resolved. That pain is described as a burning and she feels it is different than the pain she had prior to her cardiac stent placement. She has not had Levaquin since discharge on 05/12/2017. She denies any nausea, vomiting, or diarrhea. She denies any fever since discharge. CBC/BMP: 05/17/17 0810 05/17/17 0810 Significant Findings Laboratory Tests Test 05/14/17 19:55 05/17/17 08:10 White Blood Count 13.1 TH/MM3 (4.0-11.0) 17.5 TH/MM3 (4.0-11.0) Neutrophils (%) (Auto) 86.1 % (16.0-70.0) 79.9 % (16.0-70.0) Lymphocytes (%) (Auto) 6.5 % (9.0-44.0) Neutrophils # (Auto) 11.3 TH/MM3 (1.8-7.7) 14.0 TH/MM3 (1.8-7.7) Lymphocytes # (Auto) 0.8 TH/MM3 (1.0-4.8) Monocytes # (Auto) 1.0 TH/MM3 (0-0.9) 1.2 TH/MM3 (0-0.9) Neutrophils % (Manual) 84 % (16-70) 72 % (16-70) Lymphocytes % 7 % (9-44) Neutrophils # (Manual) 11.5 TH/MM3 (1.8-7.7) 14.2 TH/MM3 (1.8-7.7) Myelocytes 1 % (0-0) 5 % (0-0) Toxic Granulation 1+ (NORMAL) Blood Urea Nitrogen 19 MG/DL (7-18) 21 MG/DL (7-18) Creatinine 1.15 MG/DL (0.50-1.00) Random Glucose 271 MG/DL (74-106) 116 MG/DL (74-106) Calcium Level 8.4 MG/DL (8.5-10.1) Estimat Glomerular Filtration Rate 50 ML/MIN (>89) Albumin 3.0 GM/DL (3.4-5.0) Imaging Last Impressions Chest X-Ray 05/13/17 1641 Signed Impressions: Service Date/Time: Saturday, May 13, 2017 16:50 - CONCLUSION: 1. Hyperaerated lungs characteristic of COPD. 2. No evidence of acute air space disease or congestion. Vinnie Berrios MD PE at Discharge GENERAL: AWAKE AND ALERT AND ORIENTED X3 BREATHING BETTER SKIN: Warm and dry. HEAD: Atraumatic. Normocephalic. EYES: Pupils equal and round. No scleral icterus. No injection or drainage. EOMI ENT: No nasal bleeding or discharge. Mucous membranes pink and moist.TONGUE MIDLINE NECK: Trachea midline. No JVD. SUPPLE CARDIOVASCULAR: Regular rate and rhythm. S1. S2 NO S3 OR S4 RESPIRATORY: No accessory muscle use.RHONCHI AND SCATTERED WHEEZES BILATERALLY Breath sounds equal bilaterally. GASTROINTESTINAL: Abdomen soft, non-tender, nondistended. Hepatic and splenic margins not palpable. MUSCULOSKELETAL: Extremities without clubbing, cyanosis, or edema. No obvious deformities. NEUROLOGICAL: Awake and alert. No obvious cranial nerve deficits. Motor grossly within normal limits. Five out of 5 muscle strength in the arms and legs. Normal speech. PSYCHIATRIC: Appropriate mood and affect; insight and judgment normal. Hospital Course The patient is a 46-year-old homeless female with a history of coronary artery disease status post multiple stent placement, hypertension, hyperlipidemia, nephrolithiasis, and COPD who presents to the emergency department for evaluation of severe shortness of breath. The patient was admitted for observation from 05/09 - 05/12 and was discharged after she passed a walk test. She states that she is homeless, was awaiting funds to obtain her prescriptions from discharge, and became progressively more short of breath with wheezing and EMS was alerted. She is seen in the emergency room. She reports that she never felt that her breathing got better during her last admission but does acknowledge passing and walking cast prior to discharge. She states that her symptoms began around New Year's Day and included fever, chills, productive cough with yellowish-green sputum, wheezing, and shortness of breath. She also reports some chest pain upon arrival in the emergency room today but has since resolved. That pain is described as a burning and she feels it is different than the pain she had prior to her cardiac stent placement. She has not had Levaquin since discharge on 05/12/2017. She denies any nausea, vomiting, or diarrhea. She denies any fever since discharge. 05-16 WAS ON OXYGEN EARLIER TODAY SHE JUST TOOK IT OFF HERSELF NOT BEEN AMBULATING MUCH DENIES ANY SOB SOME COUGH LESS CONGESTION DW RN AND PT 12 OFF OF OXYGEN WANTS TO GO BACK TO THE STREETS DC TO HOME MEDS ADJUSTED NEEDS FOLLOW UP NEEDS TO STOP SMOKING Pt Condition on Discharge: Good Discharge Disposition: Discharge Home Discharge Time: <= 30 minutes Discharge Instructions DIET: Follow Instructions for: Heart Healthy Diet Speech Therapy-Diet Recommends: Regular Additional Diet Instructions: STOP SMOKING Activities you can perform: Regular-No Restrictions Other Activity Instructions: STOP SMOKING Follow up Referrals: PCP Follow-up - 3-5 Days New Medications: Nicotine (Nicoderm Cq) 14 Mg/24 Hour Patch.td24 1 PATCH TD DAILY PRN for TOBACCO CRAVINGS, #30 PATCH Amlodipine (Norvasc) 5 Mg Tab 5 MG PO BID for Blood Pressure Management, #60 TAB Famotidine (Famotidine) 20 Mg Tab 20 MG PO Q12HR for Heartburn Management, #60 TAB Changed Medications: [Budeson-Formot 160-4.5 Mcg Inh] () 60 PUFF AERO 2 PUFF INH Q12HR for Asthma Management, #1 INHALER (Changed from: [Budeson- Formot 160-4.5 Mcg Inh] (Symbicort 160-4.5 Mcg Inh) 60 PUFF AERO 2 Puff INH Q12HR #1 INHALER) Continued Medications: Albuterol 18 GM Inh (Ventolin Hfa 18 GM Inh) 90 Mcg/Act Aer 2 PUFF INH Q4H PRN for SHORTNESS OF BREATH, #1 INHALER 0 Refills (This prescription has been renewed) Aspirin DR (Aspirin EC) 81 Mg Tabdr 81 MG PO DAILY for Blood Clot Prevention for 30 Days, #30 TAB 0 Refills (This prescription has been renewed) Atorvastatin (Atorvastatin) 20 Mg Tab 20 MG PO DAILY for Cholesterol Management, #30 TAB (This prescription has been renewed) Levofloxacin (Levaquin) 750 Mg Tablet 750 MG PO DAILY for COPD EXACERBATION, #5 TAB (This prescription has been renewed) Metoprolol Tartrate (Metoprolol Tartrate) 25 Mg Tab 25 MG PO BID for Blood Pressure Management, #60 TAB 0 Refills (This prescription has been renewed) Prednisone (Prednisone) 20 Mg Tab 40 MG PO DAILY for COPD EXACERBATION for 5 Days, #10 TAB 0 Refills (This prescription has been renewed) Take 40 mg (2 tablets) daily for 5 days Discontinued Medications: Carvedilol (Coreg) 3.125 Mg Tab 3.125 MG PO Q12HR for Blood Pressure Management, #60 TAB Lisinopril (Lisinopril) 20 Mg Tab 20 MG PO DAILY for Blood Pressure Management, #30 TAB 0 Refills Additional Information STOP SMOKING James Casanova DO May 17, 2017 10:55
[2017-05-17 11:30] VITALS: PULSE 107
[2017-05-17 12:00] VITALS: BP 186/65; PULSE 74; RESP 18; TEMP 98.3; O2SAT 95
[2017-05-17 15:45] LABS: HEMOGLOBIN A1C 6.1 % (4.3-6.0)
== END 2017-05-17 13:43 | disposition home or self-care (01) | DRG 192 ==
LOC: NEDAMB 15:27 → OBSVTOIN 20:16 → NEDA 20:16 → NEPHCDU 21:48 → N04A 05-15 19:06
PROVIDERS: ADMIT Hospitalist; ATTEND Hospitalist
DX: J44.1 Chronic obstructive pulmonary disease with (acute) exacerbation (principal); I10 Essential (primary) hypertension; I25.10 Atherosclerotic heart disease of native coronary artery without angina pectoris; K21.9 Gastro-esophageal reflux disease without esophagitis; I25.2 Old myocardial infarction; E87.6 Hypokalemia; R09.02 Hypoxemia; E78.5 Hyperlipidemia, unspecified; N28.9 Disorder of kidney and ureter, unspecified; F17.210 Nicotine dependence, cigarettes, uncomplicated; Z59.0 Homelessness; Z85.42 Personal history of malignant neoplasm of other parts of uterus; Z88.0 Allergy status to penicillin; Z91.19 Patient's noncompliance with other medical treatment and regimen; Z95.5 Presence of coronary angioplasty implant and graft
CPT/HCPCS: 71045; 80048; 80053; 82550; 82552; 83036; 83735; 84100; 84155; 84439; 84443; 84484; 85007; 85027; 93005; 94640; 94664; J1650; J2920; J2930

== ENCOUNTER 2017-06-25 12:35 | Emergency (ER) | payer SELFPAY ==
[~2017-06-25] VITALS: Ht 162.6 cm; Wt 66.0 kg
[~2017-06-25 12:35] MED LIST changes: +AMLO5 PO; -CARV3.125 PO; +FAMO20TA2 PO; -LISI-515 PO; +METO25TA3 PO; +NICO14DI4 TD
[2017-06-25 12:36] VITALS: BP 212/109; PULSE 91; RESP 18; TEMP 98.6; O2SAT 97
[2017-06-25 14:02] LABS: BACTERIA, URINE RARE /hpf; BILIRUBIN, URINE NEG (NEG); BLOOD, URINE SMALL (NEG); GLUCOSE,URINE NEG (NEG); KETONE, URINE NEG (NEG); MUCUS URINE FEW /lpf (OCC); NITRITE,URINE NEG (NEG); SQUAMOUS EPITHELIAL CELL URINE 1 /hpf (0-5); TRANSITIONAL EPI CELLS, URINE <1 /hpf; URINE COLOR LIGHT-YELLOW (YELLW/STRAW); URINE LEUKOCYTE ESTERASE LARGE (NEG); WHITE BLOOD CELL CLUMPS RARE
[2017-06-25 14:03] LABS: AUTOMATED NEUTROPHIL # 7.2 TH/MM3 (1.8-7.7); BASOPHIL # 0.1 TH/MM3 (0-0.2); BASOPHIL % 0.5 % (0.0-2.0); EOSINOPHIL # 0.2 TH/MM3 (0-0.4); EOSINOPHIL % 1.6 % (0.0-4.0); HEMATOCRIT 42.5 % (35.0-46.0); HEMOGLOBIN 14.4 GM/DL (11.6-15.3); LYMPHOCYTE # 2.8 TH/MM3 (1.0-4.8); MEAN CELL VOLUME 92.2 FL (80.0-100.0); MEAN CORPUSCULAR HEMOGLOBIN 31.2 PG (27.0-34.0); MEAN CORPUSCULAR HGB CONC 33.8 % (32.0-36.0); MEAN PLATELET VOLUME 8.2 FL (7.0-11.0); MONO % 8.2 % (0.0-8.0); MONOCYTE # 0.9 TH/MM3 (0-0.9); NEUT % 64.7 % (16.0-70.0); PLATELET COUNT 272 TH/MM3 (150-450); RED BLOOD COUNT 4.61 MIL/MM3 (4.00-5.30); RED CELL DISTRIBUTION WIDTH 13.8 % (11.6-17.2); WHITE BLOOD COUNT 11.1 TH/MM3 (4.0-11.0)
[2017-06-25 14:12] LABS: ALBUMIN 3.4 GM/DL (3.4-5.0); AST (GOT) 21 U/L (15-37); BICARBONATE 29.6 MEQ/L (21.0-32.0); BLOOD UREA NITROGEN 13 MG/DL (7-18); CALCIUM 8.8 MG/DL (8.5-10.1); CHLORIDE 106 MEQ/L (98-107); CREATININE 0.76 MG/DL (0.50-1.00); GLOMERULAR FILTRATION RATE 81 ML/MIN (>89); GLUCOSE,RANDOM 86 MG/DL (74-106); SODIUM (NA) 140 MEQ/L (136-145)
[2017-06-25 14:15] LABS: ALKALINE PHOSPHATASE 110 U/L (45-117); ALT (GPT) 25 U/L (10-53); TOTAL BILIRUBIN ADULT 0.1 MG/DL (0.2-1.0); TOTAL PROTEIN 7.4 GM/DL (6.4-8.2)
--- NOTE | 2017-06-25 14:27 | PD ---
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)) Cardiac Catheterization: Yes Cardiovascular Problems: Yes (HTN) High Cholesterol: Yes Chest Pain: Yes Congestive Heart Failure: No COPD: Yes Coronary Artery Disease: Yes Diminished Hearing: No Endocrine: No Gastrointestinal Disorders: Yes (GERD) GERD: Yes Genitourinary: Yes Hypertension: Yes Immune Disorder: No Kidney Stones: Yes Musculoskeletal: No Neurologic: No Psychiatric: No Reproductive: No Respiratory: Yes Immunizations Current: Yes Myocardial Infarction: Yes (6) ?: Unknown : 4 Para: 3 Miscarriage: 2 Past Surgical History Body Medical Devices: stents Cardiac Surgery: Yes Section: Yes (x1) Coronary Stent: Yes (x13) Genitourinary Surgery: Yes (lithotripsy 1999) Gynecologic Surgery: No Other Surgery: Yes Social History Alcohol Use: No Tobacco Use: Yes (05/07/ ) Substance Use: No Allergies-Medications (Allergen,Severity, Reaction): Coded Allergies: penicillin G (Verified Allergy, Severe, Hives, 06/25/17) Reported Meds & Prescriptions Reported Meds & Active Scripts Active Bactrim DS (Sulfamethoxazole-Trimethoprim) 800-160 Mg Tab 1 Tab PO BID Nicoderm Cq (Nicotine) 14 Mg/24 Hour Patch.td24 1 Patch TD DAILY PRN Norvasc (Amlodipine Besylate) 5 Mg Tab 5 Mg PO BID Famotidine 20 Mg Tab 20 Mg PO Q12HR Metoprolol Tartrate 25 Mg Tab 25 Mg PO BID Aspirin EC (Aspirin) 81 Mg Tabdr 81 Mg PO DAILY 30 Days Ventolin Hfa 18 GM Inh (Albuterol Sulfate) 90 Mcg/Act Aer 2 Puff INH Q4H PRN Prednisone 20 Mg Tab 40 Mg PO DAILY 5 Days Take 40 mg (2 tablets) daily for 5 days Levaquin (Levofloxacin) 750 Mg Tablet 750 Mg PO DAILY [Budeson-Formot 160-4.5 Mcg Inh] 60 PUFF Aero 2 Puff INH Q12HR Atorvastatin (Atorvastatin Calcium) 20 Mg Tab 20 Mg PO DAILY Data Data Last Documented VS Vital Signs Date Time Temp Pulse Resp B/P (MAP) Pulse Ox O2 Delivery O2 Flow Rate FiO2 06/25/17 16:40 06/25/17 16:11 18 06/25/17 15:27 78 97 Room Air 06/25/17 12:36 98.6 Orders Orders Complete Blood Count With Diff (06/25/17 12:53) Comprehensive Metabolic Panel (06/25/17 12:53) Lipase (06/25/17 12:53) Urinalysis - C+S If Indicated (06/25/17 12:53) Ed Urine Pregnancytest Poc (06/25/17 12:53) Urine Culture (06/25/17 13:14) Iv Access Insert/Monitor (06/25/17 14:55) Ct Abd/Pel W/O Iv Contrast (06/25/17 ) Sodium Chlor 0.9% 1000 Ml Inj (Ns 1000 M (06/25/17 15:00) Ketorolac Inj (Toradol Inj) (06/25/17 15:00) Ondansetron Inj (Zofran Inj) (06/25/17 15:00) Ed Discharge Order (06/25/17 16:33) Labs Laboratory Tests Test 06/25/17 13:14 White Blood Count 11.1 TH/MM3 Red Blood Count 4.61 MIL/MM3 Hemoglobin 14.4 GM/DL Hematocrit 42.5 % Mean Corpuscular Volume 92.2 FL Mean Corpuscular Hemoglobin 31.2 PG Mean Corpuscular Hemoglobin Concent 33.8 % Red Cell Distribution Width 13.8 % Platelet Count 272 TH/MM3 Mean Platelet Volume 8.2 FL Neutrophils (%) (Auto) 64.7 % Lymphocytes (%) (Auto) 25.0 % Monocytes (%) (Auto) 8.2 % Eosinophils (%) (Auto) 1.6 % Basophils (%) (Auto) 0.5 % Neutrophils # (Auto) 7.2 TH/MM3 Lymphocytes # (Auto) 2.8 TH/MM3 Monocytes # (Auto) 0.9 TH/MM3 Eosinophils # (Auto) 0.2 TH/MM3 Basophils # (Auto) 0.1 TH/MM3 CBC Comment DIFF FINAL Differential Comment Urine Color LIGHT-YELLOW Urine Turbidity HAZY Urine pH 6.0 Urine Specific [place] 1.010 Urine Protein TRACE mg/dL Urine Glucose (UA) NEG mg/dL Urine Ketones NEG mg/dL Urine Occult Blood SMALL Urine Nitrite NEG Urine Bilirubin NEG Urine Urobilinogen LESS THAN 2.0 MG/DL Urine Leukocyte Esterase LARGE Urine RBC 4 /hpf Urine WBC 75 /hpf Urine WBC Clumps RARE Urine Squamous Epithelial Cells 1 /hpf Urine Transitional Epithelial Cells <1 /hpf Urine Bacteria RARE /hpf Urine Mucus FEW /lpf Microscopic Urinalysis Comment CULTURE INDICATED Blood Urea Nitrogen 13 MG/DL Creatinine 0.76 MG/DL Random Glucose 86 MG/DL Total Protein 7.4 GM/DL Albumin 3.4 GM/DL Calcium Level 8.8 MG/DL Alkaline Phosphatase 110 U/L Aspartate Amino Transf (AST/SGOT) 21 U/L Alanine Aminotransferase (ALT/SGPT) 25 U/L Total Bilirubin 0.1 MG/DL Sodium Level 140 MEQ/L Potassium Level 3.5 MEQ/L Chloride Level 106 MEQ/L Carbon Dioxide Level 29.6 MEQ/L Anion Gap 4 MEQ/L Estimat Glomerular Filtration Rate 81 ML/MIN Lipase 139 U/L MDM Medical Decision Making Medical Screen Exam Complete: Yes Emergency Medical Condition: Yes Medical Record Reviewed: Yes Scripts Sulfamethoxazole-Trimethoprim (Bactrim DS) 800-160 Mg Tab 1 TAB PO BID for Infection, #20 TAB 0 Refills Prov: Valarie Sosa MD 06/25/17 Victoria Hyatt Jun 25, 2017 14:26
[2017-06-25] MEDS ORDERED: KETOROLAC TROMETHAMINE 30 MG/ML (IVP) VIAL IV PUSH ONE (15:00)
[2017-06-25] MEDS ORDERED: ONDANSETRON HCL 4 MG/2 ML VIAL IV PUSH ONE (15:00)
[2017-06-25] MEDS ORDERED: SODIUM CHLOR 0.9% 1000 ML INJ 1,000 ML IV ONE (15:00)
[2017-06-25 15:27] VITALS: BP 211/98; PULSE 78; RESP 18; O2SAT 97
[2017-06-25 16:11] VITALS: RESP 18
--- NOTE | 2017-06-25 16:15 | RADRPT ---
EXAM DATE/TIME: 06/25/2017 15:16 [place] COMPARISON: CT ABDOMEN & PELVIS W CONTRAST, November 04, 2015, 10:29. INDICATIONS : Left sided flank pain for two days. ORAL CONTRAST: No oral contrast ingested. RADIATION DOSE: 8.18 CTDIvol (mGy) MEDICAL HISTORY : Hypertension. Cardiovascular disease Chronic obstructive pulmonary disease.Kidney stones, Uterine can cer. SURGICAL HISTORY : section. Lithotripsy ENCOUNTER: Initial ACUITY: 2 days PAIN SCALE: 9/10 LOCATION: Left upper quadrant TECHNIQUE: Renal colic protocol. Volumetric scanning of the abdomen and pelvis was performed. Using automated exposure control and adjustment of the mA and/or kV according to patient size, radiation dose was kep t as low as reasonably achievable to obtain optimal diagnostic quality images. DICOM format image da ta is available electronically for review and comparison. FINDINGS: Right side: No calcified stones in the collecting system or right ureter. No significant hydronephrosis, however , the right ureter is dilated all the way down to the ureterovesical junction, measuring up to 7 mm i n diameter. Left side: No evidence of hydronephrosis, with the left renal pelvis is prominent and the entire left ureter is dilated down to ureterovesical junction. The ureter measures up to 14 mm in dimension. No calcified stones in the collecting system or in the left ureter. Bladder: Smooth margin. No calcifications within the lumen. Other: No calcified gallstones. A few scattered diverticula in the sigmoid colon without radiographic evide nce of diverticulitis. The uterus is anteverted. The visualized lungs are clear. CONCLUSION: 1. No calcified stones in the collecting system or ureters on either side. 2. There is dilation of the entire ureter on both sides, left greater than right. The cause of the d ilation is not apparent from this scan, however, a prior CT abdomen/pelvis with contrast in November 2015 also demonstrated diffuse dilation of the left ureter.. 3. A few sigmoid diverticula without radiographic evidence of diverticulitis. Minesh Moore MD on June 25, 2017 at 16:08 Board Certified Radiologist. This report was verified electronically.
[2017-06-25] MEDS ORDERED: BACT800T5 PO (16:32)
--- NOTE | 2017-06-25 16:32 | PD ---
HPI Chief Complaint: Abdominal Pain Time Seen by Provider: 14:30 Travel History International Travel<30 days: No Contact w/Intl Traveler<30days: No Traveled to known affect area: No History of Present Illness HPI Patient is a 47-year-old female who comes in complaining of lower abdominal pain with dysuria. She says over the past 2 or 3 days. She has had some nausea and a couple of episodes of vomiting. She has since junk Gatorade without any issues. She says she had a fever of 102, but cannot specify when. She says the pain seems to be wrapping around into her back. She denies any vaginal discharge. Nothing seems to improve her symptoms. Severity is mild to moderate. PFSH Past Medical History Hx Anticoagulant Therapy: Yes (asa) Asthma: Yes Autoimmune Disease: No Cancer: Yes (REPORTS UTERINE CA-ABLASION (1999)) Cardiac Catheterization: Yes Cardiovascular Problems: Yes (HTN) High Cholesterol: Yes Chest Pain: Yes Congestive Heart Failure: No COPD: Yes Coronary Artery Disease: Yes Diminished Hearing: No Endocrine: No Gastrointestinal Disorders: Yes (GERD (rare)) GERD: Yes Genitourinary: Yes Hypertension: Yes Immune Disorder: No Kidney Stones: Yes Musculoskeletal: No Neurologic: No Psychiatric: No Reproductive: No Respiratory: Yes Immunizations Current: Yes Myocardial Infarction: Yes (6) ?: Not : 4 Para: 3 Miscarriage: 2 Past Surgical History Body Medical Devices: stents Cardiac Surgery: Yes Section: Yes (x1) Coronary Stent: Yes (x13) Genitourinary Surgery: Yes (lithotripsy 1999) Gynecologic Surgery: No Other Surgery: Yes Social History Alcohol Use: No Tobacco Use: Yes (05/07/ ) Substance Use: No Allergies-Medications (Allergen,Severity, Reaction): Coded Allergies: penicillin G (Verified Allergy, Severe, Hives, 06/25/17) Reported Meds & Prescriptions Reported Meds & Active Scripts Active Nicoderm Cq (Nicotine) 14 Mg/24 Hour Patch.td24 1 Patch TD DAILY PRN Norvasc (Amlodipine Besylate) 5 Mg Tab 5 Mg PO BID Famotidine 20 Mg Tab 20 Mg PO Q12HR Metoprolol Tartrate 25 Mg Tab 25 Mg PO BID Aspirin EC (Aspirin) 81 Mg Tabdr 81 Mg PO DAILY 30 Days Ventolin Hfa 18 GM Inh (Albuterol Sulfate) 90 Mcg/Act Aer 2 Puff INH Q4H PRN Prednisone 20 Mg Tab 40 Mg PO DAILY 5 Days Take 40 mg (2 tablets) daily for 5 days Levaquin (Levofloxacin) 750 Mg Tablet 750 Mg PO DAILY [Budeson-Formot 160-4.5 Mcg Inh] 60 PUFF Aero 2 Puff INH Q12HR Atorvastatin (Atorvastatin Calcium) 20 Mg Tab 20 Mg PO DAILY Review of Systems Except as stated in HPI: all other systems reviewed are Neg General / Constitutional: Positive: Fever HENT: No: Headaches, Lightheadedness Cardiovascular: No: Chest Pain or Discomfort Respiratory: No: Shortness of Breath Gastrointestinal: Positive: Nausea, Vomiting, Abdominal Pain Genitourinary: Positive: Dysuria, Flank Pain Musculoskeletal: No: Myalgias, Edema Skin: No Rash, No Change in Pigmentation Neurologic: No: Weakness, Dizziness Physical Exam Narrative GENERAL: Awake and alert, in no acute distress. SKIN: Focused skin assessment warm/dry. HEAD: Atraumatic. Normocephalic. EYES: Pupils equal and round. No scleral icterus. ENT: Mucous membranes pink and moist. NECK: Trachea midline. No JVD. CARDIOVASCULAR: Regular rate and rhythm. No murmur appreciated. RESPIRATORY: No accessory muscle use. Clear to auscultation. Breath sounds equal bilaterally. GASTROINTESTINAL: Abdomen soft, nondistended. Mild left sided abdominal tenderness to palpation. No rebound or guarding. No CVA tenderness. MUSCULOSKELETAL: No obvious deformities. No clubbing. No cyanosis. No edema. NEUROLOGICAL: Awake and alert. No obvious cranial nerve deficits. Motor grossly within normal limits. Normal speech. PSYCHIATRIC: Appropriate mood and affect; insight and judgment normal. Data Data Last Documented VS Vital Signs Date Time Temp Pulse Resp B/P (MAP) Pulse Ox O2 Delivery O2 Flow Rate FiO2 06/25/17 16:11 18 06/25/17 15:27 78 211/98 (135) 97 Room Air 06/25/17 12:36 98.6 Orders Orders Complete Blood Count With Diff (06/25/17 12:53) Comprehensive Metabolic Panel (06/25/17 12:53) Lipase (06/25/17 12:53) Urinalysis - C+S If Indicated (06/25/17 12:53) Ed Urine Pregnancytest Poc (06/25/17 12:53) Urine Culture (06/25/17 13:14) Iv Access Insert/Monitor (06/25/17 14:55) Ct Abd/Pel W/O Iv Contrast (06/25/17 ) Sodium Chlor 0.9% 1000 Ml Inj (Ns 1000 M (06/25/17 15:00) Ketorolac Inj (Toradol Inj) (06/25/17 15:00) Ondansetron Inj (Zofran Inj) (06/25/17 15:00) Labs Laboratory Tests Test 06/25/17 13:14 White Blood Count 11.1 TH/MM3 Red Blood Count 4.61 MIL/MM3 Hemoglobin 14.4 GM/DL Hematocrit 42.5 % Mean Corpuscular Volume 92.2 FL Mean Corpuscular Hemoglobin 31.2 PG Mean Corpuscular Hemoglobin Concent 33.8 % Red Cell Distribution Width 13.8 % Platelet Count 272 TH/MM3 Mean Platelet Volume 8.2 FL Neutrophils (%) (Auto) 64.7 % Lymphocytes (%) (Auto) 25.0 % Monocytes (%) (Auto) 8.2 % Eosinophils (%) (Auto) 1.6 % Basophils (%) (Auto) 0.5 % Neutrophils # (Auto) 7.2 TH/MM3 Lymphocytes # (Auto) 2.8 TH/MM3 Monocytes # (Auto) 0.9 TH/MM3 Eosinophils # (Auto) 0.2 TH/MM3 Basophils # (Auto) 0.1 TH/MM3 CBC Comment DIFF FINAL Differential Comment Urine Color LIGHT-YELLOW Urine Turbidity HAZY Urine pH 6.0 Urine Specific [place] 1.010 Urine Protein TRACE mg/dL Urine Glucose (UA) NEG mg/dL Urine Ketones NEG mg/dL Urine Occult Blood SMALL Urine Nitrite NEG Urine Bilirubin NEG Urine Urobilinogen LESS THAN 2.0 MG/DL Urine Leukocyte Esterase LARGE Urine RBC 4 /hpf Urine WBC 75 /hpf Urine WBC Clumps RARE Urine Squamous Epithelial Cells 1 /hpf Urine Transitional Epithelial Cells <1 /hpf Urine Bacteria RARE /hpf Urine Mucus FEW /lpf Microscopic Urinalysis Comment CULTURE INDICATED Blood Urea Nitrogen 13 MG/DL Creatinine 0.76 MG/DL Random Glucose 86 MG/DL Total Protein 7.4 GM/DL Albumin 3.4 GM/DL Calcium Level 8.8 MG/DL Alkaline Phosphatase 110 U/L Aspartate Amino Transf (AST/SGOT) 21 U/L Alanine Aminotransferase (ALT/SGPT) 25 U/L Total Bilirubin 0.1 MG/DL Sodium Level 140 MEQ/L Potassium Level 3.5 MEQ/L Chloride Level 106 MEQ/L Carbon Dioxide Level 29.6 MEQ/L Anion Gap 4 MEQ/L Estimat Glomerular Filtration Rate 81 ML/MIN Lipase 139 U/L MDM Medical Decision Making Medical Screen Exam Complete: Yes Emergency Medical Condition: Yes Medical Record Reviewed: Yes Differential Diagnosis UTI versus renal stone versus pyelonephritis Narrative Course Patient is a 47-year-old female who comes in complaining of dysuria with flank pain. Exam shows mild left-sided abdominal tenderness. IV established, labs sent. Labs show a white blood cell count of 11.1. Urinalysis is positive for infection. CT abdomen pelvis performed shows no evidence of stone or pyelonephritis. Patient given IV fluids and Toradol. She reports feeling better. She will be discharged with a prescription for Bactrim. Advised follow -up with a primary doctor. Advised return to the ED as needed for any worsening symptoms. Last 24 hours Impressions Abdomen/Pelvis CT 06/25/17 0000 Signed Impressions: Service Date/Time: Sunday, June 25, 2017 15:16 - CONCLUSION: 1. No calcified stones in the collecting system or ureters on either side. 2. There is dilation of the entire ureter on both sides, left greater than right. The cause of the dilation is not apparent from this scan, however, a prior CT abdomen/pelvis with contrast in November 2015 also demonstrated diffuse dilation of the left ureter.. 3. A few sigmoid diverticula without radiographic evidence of diverticulitis. Minesh Moore MD Diagnosis Primary Impression: Pyelonephritis Referrals: [facility] call for appointment Patient Instructions: General Instructions, Kidney Infection (ED) Additional Instructions: Follow-up with a primary care doctor. Take all of your antibiotic. Drink plenty of fluids. Return to the ED as needed for any worsening symptoms. Scripts Sulfamethoxazole-Trimethoprim (Bactrim DS) 800-160 Mg Tab 1 TAB PO BID for Infection, #20 TAB 0 Refills Prov: Valarie Sosa MD 06/25/17 Disposition: DISCHARGE HOME Condition: Stable Valarie Sosa MD Jun 25, 2017 16:32
== END 2017-06-25 16:41 | disposition home or self-care (01) ==
LOC: NEPD 12:35
DX: N12 Tubulo-interstitial nephritis, not specified as acute or chronic (principal); K57.30 Diverticulosis of large intestine without perforation or abscess without bleeding; E78.00 Pure hypercholesterolemia, unspecified; I10 Essential (primary) hypertension; I25.10 Atherosclerotic heart disease of native coronary artery without angina pectoris; J44.9 Chronic obstructive pulmonary disease, unspecified; F17.200 Nicotine dependence, unspecified, uncomplicated
CPT/HCPCS: 74176; 80053; 81001; 83690; 84703; 85025; 87086; 96361; 96374; 96375; 99284; J1885; J2405; J7030

== ENCOUNTER 2017-09-24 10:32 | Observation (INO) | payer SELFPAY ==
[~2017-09-24] VITALS: Ht 162.6 cm; Wt 67.0 kg
[2017-09-24] VITALS (9 sets, daily range): BP systolic 127–229; BP diastolic 61–123; PULSE 72–91; RESP 16–22; TEMP 98.3–98.9; O2SAT 88–99
[~2017-09-24 10:32] MED LIST changes: +BACT800T5 PO
[2017-09-24] MEDS ORDERED: SODIUM CHLORIDE 0.9% FLUSH 10 ML FLUSH IVF PRN (11:15)
[2017-09-24] MEDS ORDERED: methylPREDNISolone SOD SUCC 125 MG/2 ML VIAL IV PUSH ONE (11:15)
[2017-09-24] MEDS ORDERED: METO50TA PO (11:16)
[2017-09-24] MEDS ORDERED: LISI10TA3 PO (11:16)
--- NOTE | 2017-09-24 11:47 | RADRPT ---
EXAM DATE: 09/24/2017 11:41 AM EDT AGE/SEX: 47 years / Female INDICATIONS: Cough and shortness of breath. CLINICAL DATA: This is the patient's initial encounter. Patient reports that signs and symptoms have been present for 3 days and indicates a pain score of 0/10. MEDICAL/SURGICAL HISTORY: . six heart attacks. . 13 heart stents. COMPARISON: [facility], CHEST PA & LAT, 01/05/2016. . FINDINGS: PA and lateral views of the chest demonstrate the lungs to be symmetrically hyperaerated w ithout evidence of mass, infiltrate or effusion. The cardiomediastinal contours are unremarkable. Car diac stents are noted in place. Osseous structures are intact. CONCLUSION: 1. Multiple cardiac stents 2. COPD without evidence of acute airspace disease or congestion. Electronically signed by: Vinnie Berrios MD 09/24/2017 11:45 AM EDT
--- NOTE | 2017-09-24 12:02 | PD ---
HPI Chief Complaint: Respiratory Symptoms Time Seen by Provider: 11:06 Travel History International Travel<30 days: No Contact w/Intl Traveler<30days: No Traveled to known affect area: No History of Present Illness HPI 47-year-old female presents with cough, congestion, wheezing over the past couple of days. She states she gets like this when it starts to rain. She states that she does not wear oxygen at home. She denies any other concurrent complaints. She states she feels worse when she moves around. She denies other modifying factors. Duration is couple of days. Quality is wheezing. Severity is progressive. PFSH Past Medical History Hx Anticoagulant Therapy: Yes (asa) Asthma: Yes Autoimmune Disease: No Cancer: Yes (REPORTS UTERINE CA-ABLASION (1999)) Cardiac Catheterization: Yes Cardiovascular Problems: Yes (HTN) High Cholesterol: Yes Chest Pain: Yes Congestive Heart Failure: No COPD: Yes Coronary Artery Disease: Yes Diminished Hearing: No Endocrine: No Gastrointestinal Disorders: Yes (GERD (rare)) GERD: Yes Genitourinary: Yes Hypertension: Yes Immune Disorder: No Implanted Vascular Access Dvce: Yes Kidney Stones: Yes Musculoskeletal: No Neurologic: No Psychiatric: No Reproductive: No Respiratory: Yes Immunizations Current: Yes Myocardial Infarction: Yes (6) Tetanus Vaccination: < 5 Years Influenza Vaccination: Yes ?: Not LMP: LAST WEEK : 4 Para: 3 Miscarriage: 2 Past Surgical History Body Medical Devices: stents Cardiac Surgery: Yes Section: Yes (x1) Coronary Stent: Yes (x13) Genitourinary Surgery: Yes (lithotripsy 1999) Gynecologic Surgery: No Other Surgery: Yes (, stents placed) Social History Alcohol Use: No Tobacco Use: Yes (05/07/ ) Substance Use: No Allergies-Medications (Allergen,Severity, Reaction): Coded Allergies: penicillin G (Verified Allergy, Severe, Hives, 06/25/17) Reported Meds & Prescriptions Reported Meds & Active Scripts Active Aspirin EC (Aspirin) 81 Mg Tabdr 81 Mg PO DAILY 30 Days Ventolin Hfa 18 GM Inh (Albuterol Sulfate) 90 Mcg/Act Aer 2 Puff INH Q4H PRN [Budeson-Formot 160-4.5 Mcg Inh] 60 PUFF Aero 2 Puff INH Q12HR Atorvastatin (Atorvastatin Calcium) 20 Mg Tab 20 Mg PO DAILY Reported Metoprolol Tartrate 50 Mg Tab 50 Mg PO BID Lisinopril 10 Mg Tab 10 Mg PO DAILY Review of Systems Except as stated in HPI: all other systems reviewed are Neg Physical Exam Narrative GENERAL: 47 y/o female in no apparent distress SKIN: Focused skin assessment warm/dry. HEAD: Atraumatic. Normocephalic. EYES: Pupils equal and round. No scleral icterus. No injection or drainage. ENT: No nasal bleeding or discharge. Mucous membranes pink and moist. NECK: Trachea midline. CARDIOVASCULAR: Regular rate and rhythm. RESPIRATORY: No accessory muscle use. Inspiratory and expiratory wheezing bilaterally. GASTROINTESTINAL: Abdomen soft, non-tender, nondistended. MUSCULOSKELETAL: No obvious deformities. No clubbing. No cyanosis. No edema. NEUROLOGICAL: Awake and alert. No obvious cranial nerve deficits. Motor grossly within normal limits. Normal speech. PSYCHIATRIC: Appropriate mood and affect; insight and judgment normal. Data Data Last Documented VS Vital Signs Date Time Temp Pulse Resp B/P (MAP) Pulse Ox O2 Delivery O2 Flow Rate FiO2 09/24/17 13:03 92 Nasal Cannula 2.00 09/24/17 13:03 18 09/24/17 11:10 85 09/24/17 10:42 98.9 Orders Orders Chest, Pa & Lat (09/24/17 ) Complete Blood Count With Diff (09/24/17 11:08) Comprehensive Metabolic Panel (09/24/17 11:08) B-Type Natriuretic Peptide (09/24/17 11:08) Act Partial Throm Time (Ptt) (09/24/17 11:08) Prothrombin Time / Inr (Pt) (09/24/17 11:08) Magnesium (Mg) (09/24/17 11:08) Influenzae A/B Antigen (09/24/17 11:08) Iv Access Insert/Monitor (09/24/17 11:08) Electrocardiogram (09/24/17 11:08) Ecg Monitoring (09/24/17 11:08) Oximetry (09/24/17 11:08) Sodium Chloride 0.9% Flush (Ns Flush) (09/24/17 11:15) Methylprednisolone So Succ Inj (Solumedr (09/24/17 11:15) Albuterol-Ipratropium Neb (Duoneb Neb) (09/24/17 11:15) Lactic Acid (09/24/17 11:08) Metoprolol Tartrate (Lopressor) (09/24/17 12:30) Albuterol-Ipratropium Neb (Duoneb Neb) (09/24/17 13:15) Admit Order (Ed Use Only) (09/24/17 13:31) Labs Laboratory Tests Test 09/24/17 11:50 White Blood Count 10.2 TH/MM3 Red Blood Count 5.07 MIL/MM3 Hemoglobin 15.5 GM/DL Hematocrit 45.7 % Mean Corpuscular Volume 90.0 FL Mean Corpuscular Hemoglobin 30.6 PG Mean Corpuscular Hemoglobin Concent 34.0 % Red Cell Distribution Width 13.9 % Platelet Count 264 TH/MM3 Mean Platelet Volume 7.7 FL Neutrophils (%) (Auto) 70.9 % Lymphocytes (%) (Auto) 17.2 % Monocytes (%) (Auto) 9.0 % Eosinophils (%) (Auto) 2.5 % Basophils (%) (Auto) 0.4 % Neutrophils # (Auto) 7.2 TH/MM3 Lymphocytes # (Auto) 1.8 TH/MM3 Monocytes # (Auto) 0.9 TH/MM3 Eosinophils # (Auto) 0.3 TH/MM3 Basophils # (Auto) 0.0 TH/MM3 CBC Comment DIFF FINAL Differential Comment Prothrombin Time 10.0 SEC Prothromb Time International Ratio 1.0 RATIO Activated Partial Thromboplast Time 26.3 SEC Blood Urea Nitrogen 5 MG/DL Creatinine 0.74 MG/DL Random Glucose 97 MG/DL Total Protein 7.6 GM/DL Albumin 4.0 GM/DL Calcium Level 9.3 MG/DL Magnesium Level 2.0 MG/DL Alkaline Phosphatase 148 U/L Aspartate Amino Transf (AST/SGOT) 45 U/L Alanine Aminotransferase (ALT/SGPT) 76 U/L Total Bilirubin 0.2 MG/DL Sodium Level 142 MEQ/L Potassium Level 3.8 MEQ/L Chloride Level 106 MEQ/L Carbon Dioxide Level 24.9 MEQ/L Anion Gap 11 MEQ/L Estimat Glomerular Filtration Rate 83 ML/MIN Lactic Acid Level 0.8 mmol/L B-Type Natriuretic Peptide 92 PG/ML MDM Medical Decision Making Medical Screen Exam Complete: Yes Emergency Medical Condition: Yes Medical Record Reviewed: Yes (pmh confirmed) Interpretation(s) CBC & BMP Diagram 09/24/17 11:50 Total Protein 7.6, Albumin 4.0, Calcium Level 9.3, Magnesium Level 2.0, Alkaline Phosphatase 148 H, Aspartate Amino Transf (AST/SGOT) 45 H, Alanine Aminotransferase (ALT/SGPT) 76 H, Total Bilirubin 0.2 Last 24 hours Impressions Chest X-Ray 09/24/17 0000 Signed Impressions: CONCLUSION: cxr no acute Differential Diagnosis copd exacerbation, pneumonia, CHF, renal failure Narrative Course Will check blood work, chest x-ray, influenza and dose with duo nebs and Solu- Medrol and reevaluate Patient after treatment in the ER is still 88% on room air. Will place on oxygen and admit for further care. Physician Communication Physician Communication dr merino agrees to admit Diagnosis Primary Impression: COPD exacerbation Additional Impression: Hypoxia Admitting Information Admitting Physician Requests: Observation Maya Israel MD September 24, 2017 12:02
[2017-09-24] MEDS: RESP: ALBUTEROL 2.5 MG/IPRATROPIUM 0.5 MG NEB (SCH) INH (12:06)
[2017-09-24 12:07] LABS: AUTOMATED NEUTROPHIL # 7.2 TH/MM3 (1.8-7.7); BASOPHIL % 0.4 % (0.0-2.0); EOSINOPHIL # 0.3 TH/MM3 (0-0.4); EOSINOPHIL % 2.5 % (0.0-4.0); HEMATOCRIT 45.7 % (35.0-46.0); HEMOGLOBIN 15.5 GM/DL (11.6-15.3); LYMPH % 17.2 % (9.0-44.0); LYMPHOCYTE # 1.8 TH/MM3 (1.0-4.8); MEAN CORPUSCULAR HEMOGLOBIN 30.6 PG (27.0-34.0); MEAN PLATELET VOLUME 7.7 FL (7.0-11.0); MONOCYTE # 0.9 TH/MM3 (0-0.9); NEUT % 70.9 % (16.0-70.0); PLATELET COUNT 264 TH/MM3 (150-450); RED BLOOD COUNT 5.07 MIL/MM3 (4.00-5.30); RED CELL DISTRIBUTION WIDTH 13.9 % (11.6-17.2); WHITE BLOOD COUNT 10.2 TH/MM3 (4.0-11.0)
[2017-09-24 12:27] LABS: AST (GOT) 45 U/L (15-37); BICARBONATE 24.9 MEQ/L (21.0-32.0); BLOOD UREA NITROGEN 5 MG/DL (7-18); CALCIUM 9.3 MG/DL (8.5-10.1); CHLORIDE 106 MEQ/L (98-107); CREATININE 0.74 MG/DL (0.50-1.00); GLOMERULAR FILTRATION RATE 83 ML/MIN (>89); GLUCOSE,RANDOM 97 MG/DL (74-106); SODIUM (NA) 142 MEQ/L (136-145)
[2017-09-24 12:29] LABS: ALT (GPT) 76 U/L (10-53)
[2017-09-24] MEDS ORDERED: METOPROLOL TARTRATE 25 MG TAB PO ONE (12:30)
[2017-09-24 12:31] LABS: ALKALINE PHOSPHATASE 148 U/L (45-117); TOTAL BILIRUBIN ADULT 0.2 MG/DL (0.2-1.0); TOTAL PROTEIN 7.6 GM/DL (6.4-8.2)
[2017-09-24] MEDS ORDERED: RESP: ALBUTEROL 2.5 MG/IPRATROPIUM 0.5 MG NEB (SCH) NEB ONE (13:15)
[2017-09-24] MEDS ORDERED: hydrALAZINE HCL 20 MG/ML VIAL IV PUSH PRN (13:45)
--- NOTE | 2017-09-24 14:04 | EKG ---
Date Performed: 09/24/2017 Time Performed: 11:11:38 PTAGE: 47 years EKG: Sinus rhythm POSSIBLE LEFT ATRIAL ENLARGEMENT Nonspecific ST and T wave abnormalities No significant change from prior electrocardiogram. DOCTOR: Rangel Kelly Interpretating Date/Time 09/24/2017 14:04:03
--- NOTE | 2017-09-24 14:50 | HHI.HP ---
[facility] Primary Care Physician No Primary Care Physician Admission Diagnosis copd exacerbation, hypoxia Diagnoses: Chief Complaint: Short of breath, fever cough, phlegm production Travel History International Travel<30 Days: No Contact w/Intl Traveler <30 Da: No Traveled to Known Affected Are: No History of Present Illness 47 years old female with significant patient had multiplePast medical history of coronary artery disease heart cath with stenting in 2002 2003 2008 2014 at 2015, patient also has a history of hyperlipidemia and hypertension, presented to the ED with worsening short of breath, with fever cough phlegm production greenish, some chest tightness and wheezes. In ED patient was given a dose of Solu-Medrol and DuoNeb she is on O2 nasal cannula she still smoke about 1 pack per day she denies alcohol or illicit drug abuse, she denied any other associating symptoms. In ED patient was found to have blood pressure of 229/123 I ordered stat hydralazine IV, patient stated she did have her lisinopril and Lopressor this morning I ordered another dose of lisinopril however by the time I came to see the patient blood pressure dropped to 150/90 so we will hold on giving further blood pressure medication Review of Systems All systems reviewed and was positive for what is mentioned in history of present illness otherwise negative Past Family Social History Past Medical History Coronary artery disease with multiple stenting 2008 1999 3003 2013 2014 Hyperlipidemia Hypertension Past Surgical History Allergies: Coded Allergies: penicillin G (Verified Allergy, Severe, Hives, 06/25/17) Family History Mother of heart attack and 53 brother of heart attack in 47 Social History Smoke 1 pack per day no alcohol or illicit drug abuse Physical Exam Vital Signs Vital Signs Date Time Temp Pulse Resp B/P (MAP) Pulse Ox O2 Delivery O2 Flow Rate FiO2 09/24/17 13:39 72 21 151/93 (112) 97 Nasal Cannula 2.00 09/24/17 13:03 92 Nasal Cannula 2.00 09/24/17 13:03 18 88 Room Air 09/24/17 12:09 99 Nasal Cannula 2.00 09/24/17 11:10 85 20 200/110 (140) 93 Nasal Cannula 2.00 09/24/17 11:09 94 20 93 Room Air 09/24/17 11:07 90 20 194/115 (141) 93 Room Air 09/24/17 10:42 98.9 91 22 229/123 (158) 93 Physical Exam GENERAL: This is a well-nourished, well-developed patient, in no apparent distress. SKIN: No rashes, warm and dry HEAD: Atraumatic. Normocephalic. EYES: Pupils equal round and reactive. Extraocular motions intact. No scleral icterus. ENT: Nose without bleeding, or drainage, Airway patent. NECK: Trachea midline. Supple CARDIOVASCULAR: Regular rate and rhythm without murmurs, gallops, or rubs. RESPIRATORY: Scattered wheezing bilaterally GASTROINTESTINAL: Abdomen soft, non-tender, nondistended. Positive bowel sounds MUSCULOSKELETAL: Extremities without clubbing, cyanosis, or edema. Pedal pulses appreciated NEUROLOGICAL: Awake and alert. Moves all extremity. Normal speech.no focal neurological deficit Laboratory Laboratory Tests Test 09/24/17 11:50 White Blood Count 10.2 Red Blood Count 5.07 Hemoglobin 15.5 Hematocrit 45.7 Mean Corpuscular Volume 90.0 Mean Corpuscular Hemoglobin 30.6 Mean Corpuscular Hemoglobin Concent 34.0 Red Cell Distribution Width 13.9 Platelet Count 264 Mean Platelet Volume 7.7 Neutrophils (%) (Auto) 70.9 Lymphocytes (%) (Auto) 17.2 Monocytes (%) (Auto) 9.0 Eosinophils (%) (Auto) 2.5 Basophils (%) (Auto) 0.4 Neutrophils # (Auto) 7.2 Lymphocytes # (Auto) 1.8 Monocytes # (Auto) 0.9 Eosinophils # (Auto) 0.3 Basophils # (Auto) 0.0 CBC Comment DIFF FINAL Differential Comment Prothrombin Time 10.0 Prothromb Time International Ratio 1.0 Activated Partial Thromboplast Time 26.3 Blood Urea Nitrogen 5 Creatinine 0.74 Random Glucose 97 Total Protein 7.6 Albumin 4.0 Calcium Level 9.3 Magnesium Level 2.0 Alkaline Phosphatase 148 Aspartate Amino Transf (AST/SGOT) 45 Alanine Aminotransferase (ALT/SGPT) 76 Total Bilirubin 0.2 Sodium Level 142 Potassium Level 3.8 Chloride Level 106 Carbon Dioxide Level 24.9 Anion Gap 11 Estimat Glomerular Filtration Rate 83 Lactic Acid Level 0.8 B-Type Natriuretic Peptide 92 Date/Time Source Procedure Growth Status 09/24/17 11:50 Nasal Aspirate Influenza Types A,B Antigen (SPENSER) - Final NEGATIVE FOR FLU A AND B ANTIGEN.... Complete Result Diagram: 09/24/17 1150 09/24/17 1150 Imaging Last Impressions Chest X-Ray 09/24/17 0000 Signed Impressions: CONCLUSION: Caprini VTE Risk Assessment Caprini VTE Risk Assessment: Mod/High Risk (score >= 2) Caprini Risk Assessment Model Point Value = 1 Point Value = 2 Point Value = 3 Point Value = 5 Age 41-60 Minor surgery BMI > 25 kg/m2 Swollen legs Varicose veins or History of unexplained or recurrent spontaneous Oral contraceptives or hormone replacement Sepsis (< 1 month) Serious lung disease, including pneumonia (< 1 month) Abnormal pulmonary function Acute myocardial infarction Congestive heart failure (< 1 month) History of inflammatory bowel disease Medical patient at bed rest Age 61-74 Arthroscopic surgery Major open surgery (> 45 min) Laparoscopic surgery (> 45 min) Malignancy Confined to bed (> 72 hours) Immobilizing plaster cast Central venous access Age >= 75 History of VTE Family history of VTE Factor V Leiden Prothrombin [id number] Lupus anticoagulant Anticardiolipin antibodies Elevated serum homocysteine Heparin-induced thrombocytopenia Other congenital or acquired thrombophilia Stroke (< 1 month) Elective arthroplasty Hip, pelvis, or leg fracture Acute spinal cord injury (< 1 month) Prophylaxis Regimen Total Risk Factor Score Risk Level Prophylaxis Regimen 0-1 Low Early ambulation 2 Moderate Order ONE of the following: *Sequential Compression Device (SCD) *Heparin 5000 units SQ BID 3-4 Higher Order ONE of the following medications: *Heparin 5000 units SQ TID *Enoxaparin/Lovenox 40 mg SQ daily (WT < 150 kg, CrCl > 30 mL/min) *Enoxaparin/Lovenox 30 mg SQ daily (WT < 150 kg, CrCl > 10-29 mL/min) *Enoxaparin/Lovenox 30 mg SQ BID (WT < 150 kg, CrCl > 30 mL/min) AND/OR *Sequential Compression Device (SCD) 5 or more Highest Order ONE of the following medications: *Heparin 5000 units SQ TID (Preferred with Epidurals) *Enoxaparin/Lovenox 40 mg SQ daily (WT < 150 kg, CrCl > 30 mL/min) *Enoxaparin/Lovenox 30 mg SQ daily (WT < 150 kg, CrCl > 10-29 mL/min) *Enoxaparin/Lovenox 30 mg SQ BID (WT < 150 kg, CrCl > 30 mL/min) AND *Sequential Compression Device (SCD) Assessment and Plan Assessment and Plan 47 years old female with significant past medical history of coronary artery disease and tobacco abuse presented with shortness of breath, cough with greenish phlegm production, and fever and chest tightness and wheezing COPD exacerbation Hypertensive urgency History of coronary artery disease Hyperlipidemia DVT prophylax Plan: We will admit to observation Stat blood pressure monitoring and treatment with hydralazine IV increase lisinopril to 20 mg p.o. daily, I will hold on beta-li due to COPD, however blood pressure dropped on its own to 150/90 will monitor closely O2 DuoNeb and Solu-Medrol Zithromax for COPD exacerbation EKG personally reviewed by me no new ST changes Due to significant coronary artery disease history I will do cardiac enzymes just to rule out any underlying component Check FLP and A1c, monitor Accu-Chek while patient on Solu-Medrol make sure she does not get hyperglycemia Continue home medication with lisinopril atorvastatin, Symbicort DVT prophylaxis with heparin Discussed Condition With Patient and physician in ED Rashmi Estes MD September 24, 2017 14:50
[2017-09-24] MEDS: LISINOPRIL 10 MG TAB PO SCH (15:48)
[2017-09-24] MEDS: HEPARIN SODIUM - SQ 10,000 UNITS/ML VIAL SQ SCH (15:49)
[2017-09-24 16:06] LABS: CHOLESTEROL/ HDL RATIO 2.99 RATIO; HDL CHOLESTEROL 65.4 MG/DL (40.0-60.0)
[2017-09-24 16:38] LABS: TROPONIN I LESS THAN 0.02 NG/ML (0.02-0.05)
[2017-09-24] MEDS: methylPREDNISolone SOD SUCC 125 MG/2 ML VIAL IV PUSH SCH (18:17)
[2017-09-24] MEDS ORDERED: BUDESONIDE INH SCH (21:00)
[2017-09-24] MEDS ORDERED: FORMOTEROL INH SCH (21:00)
[2017-09-24 21:41] LABS: TROPONIN I LESS THAN 0.02 NG/ML (0.02-0.05)
[2017-09-24] MEDS: BUDESONIDE-FORMOTEROL 160/4.5 MCG INHALER INH SCH (22:25)
[2017-09-24] MEDS: METOPROLOL TARTRATE 50 MG TAB PO SCH (22:25)
[2017-09-24] MEDS: SODIUM CHLORIDE 0.9% FLUSH 10 ML FLUSH IV FLUSH SCH (22:27)
[2017-09-25] VITALS (9 sets, daily range): BP systolic 131–167; BP diastolic 69–80; PULSE 60–90; RESP 16–18; TEMP 97.6–98.4; O2SAT 90–97
[2017-09-25] MEDS: HEPARIN SODIUM - SQ 10,000 UNITS/ML VIAL SQ SCH ×4 (00:06→23:01)
[2017-09-25] MEDS: methylPREDNISolone SOD SUCC 125 MG/2 ML VIAL IV PUSH SCH ×5 (00:06→23:01)
[2017-09-25 03:09] LABS: AUTOMATED NEUTROPHIL # 9.1 TH/MM3 (1.8-7.7); BASOPHIL % 0.3 % (0.0-2.0); HEMATOCRIT 45.3 % (35.0-46.0); HEMOGLOBIN 14.8 GM/DL (11.6-15.3); LYMPH % 9.4 % (9.0-44.0); MEAN CELL VOLUME 90.9 FL (80.0-100.0); MEAN CORPUSCULAR HEMOGLOBIN 29.8 PG (27.0-34.0); MEAN CORPUSCULAR HGB CONC 32.8 % (32.0-36.0); MEAN PLATELET VOLUME 7.9 FL (7.0-11.0); MONO % 2.4 % (0.0-8.0); MONOCYTE # 0.2 TH/MM3 (0-0.9); NEUT % 87.9 % (16.0-70.0); PLATELET COUNT 276 TH/MM3 (150-450); RED BLOOD COUNT 4.99 MIL/MM3 (4.00-5.30); RED CELL DISTRIBUTION WIDTH 13.6 % (11.6-17.2); WHITE BLOOD COUNT 10.3 TH/MM3 (4.0-11.0)
[2017-09-25 03:23] LABS: BICARBONATE 28.5 MEQ/L (21.0-32.0); CALCIUM 9.3 MG/DL (8.5-10.1); CREATININE 0.79 MG/DL (0.50-1.00)
[2017-09-25] MEDS: BUDESONIDE-FORMOTEROL 160/4.5 MCG INHALER INH SCH ×2 (08:25→22:25)
[2017-09-25] MEDS: AZITHROMYCIN 250 MG TAB PO SCH (08:26)
[2017-09-25] MEDS: ATORVASTATIN 20 MG TAB PO SCH (08:26)
[2017-09-25] MEDS: ASPIRIN EC 81 MG TABEC PO SCH (08:27)
[2017-09-25] MEDS: METOPROLOL TARTRATE 50 MG TAB PO SCH (08:27)
[2017-09-25] MEDS: LISINOPRIL 10 MG TAB PO SCH (08:27)
[2017-09-25] MEDS: SODIUM CHLORIDE 0.9% FLUSH 10 ML FLUSH IV FLUSH SCH ×2 (08:27→22:25)
[2017-09-25] MEDS ORDERED: GLUCAGON 1 MG/ML VIAL OTHER PRN (10:30)
[2017-09-25] MEDS ORDERED: DEXTROSE 50% IN WATER 50 ML VIAL(D50) IV PUSH PRN (10:30)
--- NOTE | 2017-09-25 11:00 | HHI.PR ---
Subjective Remarks Follow up on patient with COPD exacerbation. Patient seen and examined. Patient reports her breathing has improved a little. She continues to have cough with yellowish brown sputum production. She reports getting short of breath getting up to go to bedside commode earlier this am. She denies any chest pain. She reports nausea with vomiting x 2 episodes last night but none this am. She denies any blood in the vomitus. She denies any fever or chills. She denies any urinary difficulties, diarrhea or constipation. The patient is homeless. Objective Vitals Vital Signs Date Time Temp Pulse Resp B/P (MAP) Pulse Ox O2 Delivery O2 Flow Rate FiO2 09/25/17 08:13 98.4 65 16 147/74 (98) 92 09/25/17 07:20 64 09/25/17 04:41 98.1 60 16 139/74 (95) 92 09/25/17 00:50 97.6 78 16 131/69 (89) 90 09/25/17 00:00 70 09/24/17 22:00 93 Nasal Cannula 2.00 09/24/17 20:52 98.4 86 16 127/61 (83) 92 09/24/17 16:09 98.3 90 09/24/17 13:39 72 21 151/93 (112) 97 Nasal Cannula 2.00 09/24/17 13:03 92 Nasal Cannula 2.00 09/24/17 13:03 18 88 Room Air 09/24/17 12:09 99 Nasal Cannula 2.00 09/24/17 11:10 85 20 200/110 (140) 93 Nasal Cannula 2.00 09/24/17 11:09 94 20 93 Room Air 09/24/17 11:07 90 20 194/115 (141) 93 Room Air 09/24/17 10:42 98.9 91 22 229/123 (158) 93 Result Diagram: 09/25/17 0256 09/25/17 0256 Imaging Last Impressions Chest X-Ray 09/24/17 0000 Signed Impressions: CONCLUSION: Objective Remarks GENERAL: This is a well-nourished, well-developed unkempt female patient, in no apparent distress. Awake and alert. Sitting up in bed on 2LNC. SKIN: No rashes, warm and dry HEAD: Atraumatic. Normocephalic. EYES: Pupils equal round and reactive. Extraocular motions intact. No scleral icterus. ENT: Nose without bleeding or drainage. Airway patent. MMM. NECK: Trachea midline. Supple CARDIOVASCULAR: Regular rate and rhythm without murmurs, gallops, or rubs. RESPIRATORY: Nonlabored. Diminished air entry noted. No wheezing or rhonchi. GASTROINTESTINAL: Abdomen soft, non-tender, nondistended. Positive bowel sounds MUSCULOSKELETAL: Extremities without clubbing, cyanosis or edema. Pedal pulses appreciated NEUROLOGICAL: Awake and alert. Able to move all extremities spontaneously. Motor and sensory function grossly intact. No focal neurological deficit noted. Normal speech. PSYCHIATRIC: Calm and cooperative with examination. Procedures None A/P Assessment and Plan 47 years old female with significant past medical history of coronary artery disease and tobacco abuse presented with shortness of breath, cough with greenish phlegm production, fever, chest tightness and wheezing. COPD exacerbation with ongoing tobaccoism Discussed tobacco cessation, offered nicotine patch but patient declined BNP 92 CXR shows multiple cardiac stents, COPD without evidence of acute airspace disease or congestion, images reviewed by me -Continue on scheduled DuoNeb -Continue on IV Solu-Medrol -Continue on Zithromax -Continue on Symbicort -Monitor respiratory status and continue supplemental oxygen to maintain O2 sats greater than 92% Hypertensive urgency, much improved BP 229/123 in the ED, now 147/74 -Continue on lisinopril 20 mg daily, hold metoprolol 50 mg twice daily 2/2 AECOPD and begin Norvasc 5mg daily -IV hydralazine 10 mg every 6 as needed with parameters -Continue to monitor BP and adjust treatment accordingly Coronary artery disease status post multiple cardiac stents Patient has no complaints of chest pain at this time Cardiac enzymes negative 2 EKG with no acute changes noted -Continue on aspirin 81 mg daily Dyslipidemia -Continue on atorvastatin 20 mg daily Hyperglycemia No reported history of diabetes -Accu-Cheks and insulin sliding scale -Obtain hemoglobin A1c level DVT prophylaxis -Heparin subcu Discharge Planning Not ready for discharge. Discharge pending clinical improvement. Radha Escobar September 25, 2017 11:00
[2017-09-25] MEDS: RESP: ALBUTEROL 2.5 MG/IPRATROPIUM 0.5 MG NEB (SCH) NEB ×3 (11:57→20:38)
[2017-09-25] MEDS ORDERED: RESP: ALBUTEROL 2.5 MG/3 ML NEB (PRN) NEB (12:15)
[2017-09-25] MEDS: INSULIN ASPART SUPPLEMENTAL SCALE SQ SCH ×3 (14:19→22:24)
[2017-09-25 17:14] LABS: HEMOGLOBIN A1C 5.7 % (4.3-6.0)
[2017-09-25] MEDS ORDERED: amLODIPine BESYLATE 5 MG TAB PO ONE (18:00)
[2017-09-25] MEDS ORDERED: ACETAMINOPHEN 325 MG TAB PO PRN (22:45)
[2017-09-25] MEDS: SODIUM CHLORIDE 0.9% FLUSH 10 ML FLUSH IV FLUSH PRN (23:02)
[2017-09-26] VITALS (13 sets, daily range): BP systolic 113–175; BP diastolic 57–90; PULSE 63–98; RESP 16–20; TEMP 98–98.6; O2SAT 91–97
[2017-09-26] MEDS: SODIUM CHLORIDE 0.9% FLUSH 10 ML FLUSH IV FLUSH PRN (06:00)
[2017-09-26] MEDS: methylPREDNISolone SOD SUCC 125 MG/2 ML VIAL IV PUSH SCH ×3 (06:00→17:43)
[2017-09-26] MEDS: RESP: ALBUTEROL 2.5 MG/IPRATROPIUM 0.5 MG NEB (SCH) NEB ×4 (08:05→19:46)
[2017-09-26] MEDS: INSULIN ASPART SUPPLEMENTAL SCALE SQ SCH ×4 (09:00→21:19)
[2017-09-26] MEDS: ATORVASTATIN 20 MG TAB PO SCH (10:01)
[2017-09-26] MEDS: ASPIRIN EC 81 MG TABEC PO SCH (10:01)
[2017-09-26] MEDS: amLODIPine BESYLATE 5 MG TAB PO SCH (10:02)
[2017-09-26] MEDS: AZITHROMYCIN 250 MG TAB PO SCH (10:02)
[2017-09-26] MEDS: LISINOPRIL 10 MG TAB PO SCH (10:02)
[2017-09-26] MEDS: HEPARIN SODIUM - SQ 10,000 UNITS/ML VIAL SQ SCH ×2 (10:03→17:43)
[2017-09-26] MEDS: BUDESONIDE-FORMOTEROL 160/4.5 MCG INHALER INH SCH ×2 (10:03→21:19)
[2017-09-26] MEDS: SODIUM CHLORIDE 0.9% FLUSH 10 ML FLUSH IV FLUSH SCH ×2 (10:03→21:19)
--- NOTE | 2017-09-26 10:51 | HHI.PR ---
Subjective Remarks Follow up on patient with COPD exacerbation. Patient seen and examined. Patient reports her breathing is minimally improved today. She continues to have cough with brownish yellow sputum production. She complains of left ear pain. She denies any drainage from the ear. She continues to have significant shortness of breath with minimal exertion. She denies any chest pain. She denies any nausea or vomiting or abdominal pain and was able to eat all of her breakfast this morning. She denies any urinary difficulties, diarrhea or constipation. Objective Vitals Vital Signs Date Time Temp Pulse Resp B/P (MAP) Pulse Ox O2 Delivery O2 Flow Rate FiO2 09/26/17 09:44 98.3 92 19 175/90 (118) 91 09/26/17 08:32 85 09/26/17 08:05 97 Nasal Cannula 2.00 09/26/17 04:19 98.1 63 16 113/64 (80) 94 09/26/17 03:40 63 09/26/17 00:30 82 09/26/17 00:25 98.3 95 16 120/57 (78) 95 09/26/17 00:01 15 09/25/17 20:44 98.0 82 16 167/80 (109) 97 09/25/17 16:00 98.3 90 16 152/79 (103) 93 09/25/17 11:59 92 Nasal Cannula 2.00 09/25/17 11:50 98.1 74 18 147/75 (99) 92 Result Diagram: 09/25/17 0256 09/25/17 0256 Imaging Last Impressions Chest X-Ray 09/24/17 0000 Signed Impressions: CONCLUSION: 1. Multiple cardiac stents 2. COPD without evidence of acute airspace disease or congestion. Objective Remarks GENERAL: This is a well-nourished, well-developed unkempt female patient, in no apparent distress. Awake and alert. Sitting up in bed on 2LNC. SKIN: No rashes, warm and dry HEAD: Atraumatic. Normocephalic. EYES: Pupils equal round and reactive. Extraocular motions intact. No scleral icterus. ENT: Nose without bleeding or drainage. Airway patent. MMM. NECK: Trachea midline. Supple CARDIOVASCULAR: Regular rate and rhythm without murmurs, gallops, or rubs. RESPIRATORY: Nonlabored. Diminished air entry noted. Diffuse wheezing noted in all lung patel. GASTROINTESTINAL: Abdomen soft, non-tender, nondistended. Positive bowel sounds MUSCULOSKELETAL: Extremities without clubbing, cyanosis or edema. Pedal pulses appreciated NEUROLOGICAL: Awake and alert. Able to move all extremities spontaneously. Motor and sensory function grossly intact. No focal neurological deficit noted. Normal speech. PSYCHIATRIC: Calm and cooperative with examination. Procedures None A/P Assessment and Plan 47 years old female with significant past medical history of coronary artery disease and tobacco abuse presented with shortness of breath, cough with greenish phlegm production, fever, chest tightness and wheezing. COPD exacerbation with ongoing tobaccoism Discussed tobacco cessation, offered nicotine patch but patient declined BNP 92 CXR shows multiple cardiac stents, COPD without evidence of acute airspace disease or congestion, images reviewed by me Still with significant wheezing on exam requiring supplemental oxygen to maintain O2 saturations -Continue on IV Solu-Medrol and po Zithromax -Continue on scheduled and as needed duo nebs -Continue on Symbicort -Monitor respiratory status and continue supplemental oxygen to maintain O2 sats greater than 92% Hypertensive urgency, much improved BP 229/123 in the ED -Continue on lisinopril 20 mg daily, hold metoprolol 50 mg twice daily 2/2 AECOPD and begin Norvasc 5mg daily -IV hydralazine 10 mg every 6 as needed with parameters -Continue to monitor BP and adjust treatment accordingly Coronary artery disease status post multiple cardiac stents Patient has no complaints of chest pain at this time Cardiac enzymes negative 2 EKG with no acute changes noted -Continue on aspirin 81 mg daily Dyslipidemia -Continue on atorvastatin 20 mg daily Hyperglycemia, suspect secondary to IV SoluMedrol No reported history of diabetes HgbA1c 5.7 -Accu-Cheks and insulin sliding scale while on IV steroid DVT prophylaxis -Heparin subcu Discharge Planning Not ready for discharge. Discharge pending clinical improvement. Radha Escobar September 26, 2017 10:51
[2017-09-27] VITALS (11 sets, daily range): BP systolic 128–171; BP diastolic 65–90; PULSE 71–99; RESP 16–19; TEMP 97.5–98.3; O2SAT 90–97
[2017-09-27] MEDS: methylPREDNISolone SOD SUCC 125 MG/2 ML VIAL IV PUSH SCH ×2 (00:17→05:17)
[2017-09-27] MEDS: HEPARIN SODIUM - SQ 10,000 UNITS/ML VIAL SQ SCH ×3 (00:17→16:17)
[2017-09-27] MEDS: SODIUM CHLORIDE 0.9% FLUSH 10 ML FLUSH IV FLUSH PRN ×2 (00:18→05:17)
[2017-09-27] MEDS: INSULIN ASPART SUPPLEMENTAL SCALE SQ SCH ×4 (08:00→21:52)
[2017-09-27] MEDS: RESP: ALBUTEROL 2.5 MG/IPRATROPIUM 0.5 MG NEB (SCH) NEB ×4 (08:12→19:57)
[2017-09-27] MEDS: ATORVASTATIN 20 MG TAB PO SCH (09:19)
[2017-09-27] MEDS: AZITHROMYCIN 250 MG TAB PO SCH (09:19)
[2017-09-27] MEDS: LISINOPRIL 10 MG TAB PO SCH (09:19)
[2017-09-27] MEDS: ASPIRIN EC 81 MG TABEC PO SCH (09:20)
[2017-09-27] MEDS: BUDESONIDE-FORMOTEROL 160/4.5 MCG INHALER INH SCH ×2 (09:20→21:52)
[2017-09-27] MEDS: amLODIPine BESYLATE 5 MG TAB PO SCH (09:20)
[2017-09-27] MEDS: SODIUM CHLORIDE 0.9% FLUSH 10 ML FLUSH IV FLUSH SCH ×2 (09:21→21:52)
--- NOTE | 2017-09-27 10:23 | HHI.PR ---
Subjective Remarks Follow-up on patient with COPD exacerbation. Patient seen and examined. Patient is complaining of sore throat this morning. She denies any difficulty swallowing but does report pain with swallowing. She denies any fever or chills. Denies any night sweats. States her breathing has improved. She is still short of breath when getting up and moving around her room and is requiring 2 L nasal cannula to maintain appropriate oxygen saturations while at rest. She denies any chest pain. She denies any nausea, vomiting or abdominal pain. She denies any swelling in the lower extremities. Objective Vitals Vital Signs Date Time Temp Pulse Resp B/P (MAP) Pulse Ox O2 Delivery O2 Flow Rate FiO2 09/27/17 08:14 93 Nasal Cannula 2.00 09/27/17 08:07 79 09/27/17 08:00 98.1 78 19 171/84 (113) 93 09/27/17 03:29 98.1 71 16 128/65 (86) 92 09/27/17 00:21 98.3 87 16 135/73 (93) 97 09/26/17 21:00 Nasal Cannula 2.00 09/26/17 20:05 98.6 96 16 144/75 (98) 93 09/26/17 19:47 96 Nasal Cannula 1.00 09/26/17 17:18 94 09/26/17 16:11 98.0 86 20 135/65 (88) 93 09/26/17 12:35 96 09/26/17 12:30 98.1 98 19 152/70 (97) 93 Result Diagram: 09/25/17 0256 09/25/17 0256 Imaging Last Impressions Chest X-Ray 09/24/17 0000 Signed Impressions: CONCLUSION: 1. Multiple cardiac stents 2. COPD without evidence of acute airspace disease or congestion. Objective Remarks GENERAL: This is a well-nourished, well-developed unkempt female patient, in no apparent distress. Awake and alert. Sitting up in bed on 2LNC. Sats 93% on 2L. SKIN: Warm and dry. No generalized rash. HEAD: Atraumatic. Normocephalic. EYES: Pupils equal round and reactive. Extraocular motions intact. No scleral icterus. ENT: Nose without bleeding or drainage. Airway patent. MMM. Throat without any noticeable erythema or exudate. ?mild whitish coating on tongue. NECK: Trachea midline. Supple. CARDIOVASCULAR: Regular rate and rhythm without murmurs, gallops, or rubs. RESPIRATORY: Nonlabored. Diminished air entry noted but no wheezing on exam today. GASTROINTESTINAL: Abdomen soft, non-tender, nondistended. Positive bowel sounds MUSCULOSKELETAL: Extremities without clubbing, cyanosis or edema. Pedal pulses appreciated NEUROLOGICAL: Awake and alert. Able to move all extremities spontaneously. Motor and sensory function grossly intact. No focal neurological deficit noted. Normal speech. PSYCHIATRIC: Calm and cooperative with examination. Procedures None A/P Assessment and Plan 47 years old female with significant past medical history of coronary artery disease and tobacco abuse presented with shortness of breath, cough with greenish phlegm production, fever, chest tightness and wheezing. Odynophagia -obtain rapid strep test -trial of Nystatin s/s QID -monitor for improvement COPD exacerbation with ongoing tobaccoism Discussed tobacco cessation, offered nicotine patch but patient declined BNP 92 CXR shows multiple cardiac stents, COPD without evidence of acute airspace disease or congestion -Continue on Zithromax -Taper down from IV Solu-Medrol to p.o. -Continue on scheduled and as needed duo nebs -Continue on Symbicort -Monitor respiratory status and continue supplemental oxygen to maintain O2 sats greater than 92% -Obtain home oxygen walk test Hypertensive urgency, much improved BP 229/123 in the ED -Continue on lisinopril 20 mg daily and Norvasc 5mg daily -Resume home dose of Lopressor 50 mg twice daily -Continue to monitor BP and adjust treatment accordingly Coronary artery disease status post multiple cardiac stents Patient has no complaints of chest pain at this time Cardiac enzymes negative 2 EKG with no acute changes noted -Continue on aspirin 81 mg daily Dyslipidemia -Continue on atorvastatin 20 mg daily Hyperglycemia, suspect secondary to IV SoluMedrol No reported history of diabetes HgbA1c 5.7 -Accu-Cheks and insulin sliding scale while on IV steroid DVT prophylaxis -Heparin subcu Discharge Planning Possible discharge later today pending clinical improvement, results of home oxygen walk test. Radha Escobar September 27, 2017 10:23
[2017-09-27] MEDS ORDERED: guaiFENesin E.R. 600 MG TAB PO ONE (11:30)
[2017-09-27] MEDS: NYSTATIN SUSP 500,000 U/5 ML CUP SWISH-SWAL SCH ×3 (12:15→21:53)
[2017-09-27] MEDS: METOPROLOL TARTRATE 50 MG TAB PO SCH (21:52)
[2017-09-27] MEDS: guaiFENesin E.R. 600 MG TAB PO SCH (21:53)
[2017-09-28] VITALS: PULSE 70
[2017-09-28] MEDS: HEPARIN SODIUM - SQ 10,000 UNITS/ML VIAL SQ SCH ×2 (00:49→11:21)
[2017-09-28 04:00] VITALS: PULSE 62
[2017-09-28 04:16] VITALS: BP 172/88; PULSE 70; RESP 16; TEMP 98.2; O2SAT 92
[2017-09-28] MEDS ORDERED: cloNIDine HCL 0.1 MG TAB PO ONE (05:15)
[2017-09-28 07:41] VITALS: O2SAT 94
[2017-09-28] MEDS: RESP: ALBUTEROL 2.5 MG/IPRATROPIUM 0.5 MG NEB (SCH) NEB ×2 (07:41→13:00)
[2017-09-28 08:00] VITALS: BP 134/79; PULSE 73; RESP 18; TEMP 98; O2SAT 92
[2017-09-28] MEDS ORDERED: predniSONE 20 MG TAB PO SCH (09:00)
[2017-09-28] MEDS: INSULIN ASPART SUPPLEMENTAL SCALE SQ SCH (09:08)
[2017-09-28] MEDS ORDERED: ACYCLOVIR 800 MG TAB PO ONE (10:00)
[2017-09-28] MEDS ORDERED: guaiFENesin ER PO (10:09)
[2017-09-28] MEDS ORDERED: Nystatin Liq SWISH-SWAL (10:09)
[2017-09-28] MEDS ORDERED: PRED20 PO (10:09)
[2017-09-28] MEDS ORDERED: AMLO5 PO (10:09)
[2017-09-28] MEDS ORDERED: LISI10TA3 PO (10:09)
[2017-09-28] MEDS ORDERED: Budeson-Formot 160-4.5 Mcg Inh INH (10:09)
[2017-09-28] MEDS ORDERED: ASPI81TA23 PO (10:09)
[2017-09-28] MEDS ORDERED: AZIT250T3 PO (10:09)
[2017-09-28] MEDS ORDERED: METO50TA PO (10:09)
[2017-09-28] MEDS ORDERED: VENTAER INH (10:09)
[2017-09-28] MEDS ORDERED: ATOR20TA15 PO (10:09)
[2017-09-28] MEDS ORDERED: ZOVI5CRE3 TOPICAL (10:09)
--- NOTE | 2017-09-28 10:19 | HHI.DS ---
Discharge Summary Admission Date September 24, 2017 at 13:31 Discharge Date: September 28, 2017 Admitting Diagnosis copd exacerbation, hypoxia (1) COPD exacerbation ICD Code: J44.1 - Chronic obstructive pulmonary disease with (acute) exacerbation Status: Acute (2) Hypertensive urgency ICD Code: I16.0 - Hypertensive urgency (3) Hypoxia ICD Code: R09.02 - Hypoxemia Status: Acute (4) Thrush ICD Code: B37.0 - Candidal stomatitis (5) Tobacco abuse ICD Code: Z72.0 - Tobacco abuse Status: Acute (6) Hypertension ICD Code: I10 - Hypertension Status: Acute (7) Homelessness ICD Code: Z59.0 - Homelessness Status: Acute Procedures None Brief History - From Admission 47 years old female with significant patient had multiplePast medical history of coronary artery disease heart cath with stenting in 2002 2003 2008 2013 at 2015, patient also has a history of hyperlipidemia and hypertension, presented to the ED with worsening short of breath, with fever cough phlegm production greenish, some chest tightness and wheezes. In ED patient was given a dose of Solu-Medrol and DuoNeb she is on O2 nasal cannula she still smoke about 1 pack per day she denies alcohol or illicit drug abuse, she denied any other associating symptoms. In ED patient was found to have blood pressure of 229/123 I ordered stat hydralazine IV, patient stated she did have her lisinopril and Lopressor this morning I ordered another dose of lisinopril however by the time I came to see the patient blood pressure dropped to 150/90 so we will hold on giving further blood pressure medication CBC/BMP: 09/25/17 0256 09/25/17 0256 Significant Findings Laboratory Tests Test 09/25/17 16:20 Imaging Last Impressions Chest X-Ray 09/24/17 0000 Signed Impressions: CONCLUSION: 1. Multiple cardiac stents 2. COPD without evidence of acute airspace disease or congestion. PE at Discharge GENERAL: This is a well-nourished, well-developed unkempt female patient, in no apparent distress. Awake and alert. Sitting up in bed on 2LNC. Sats 93% on 2L. SKIN: Warm and dry. No generalized rash. HEAD: Atraumatic. Normocephalic. EYES: Pupils equal round and reactive. Extraocular motions intact. No scleral icterus. ENT: Nose without bleeding or drainage. Airway patent. MMM. Throat without any noticeable erythema or exudate. ?mild whitish coating on tongue. NECK: Trachea midline. Supple. CARDIOVASCULAR: Regular rate and rhythm without murmurs, gallops, or rubs. RESPIRATORY: Nonlabored. Diminished air entry noted but no wheezing on exam today. GASTROINTESTINAL: Abdomen soft, non-tender, nondistended. Positive bowel sounds MUSCULOSKELETAL: Extremities without clubbing, cyanosis or edema. Pedal pulses appreciated NEUROLOGICAL: Awake and alert. Able to move all extremities spontaneously. Motor and sensory function grossly intact. No focal neurological deficit noted. Normal speech. PSYCHIATRIC: Calm and cooperative with examination. Pt update on day of discharge Follow-up on patient with COPD exacerbation. Patient seen and examined. Patient states she feels much improved today. Her breathing is much better. She denies any nausea, vomiting or abdominal pain. She denies any chest pain. She reports her sore throat is improved. She denies any urinary complaints. She denies any diarrhea or constipation. She denies any swelling in the bilateral lower extremities. Hospital Course Patient was admitted with shortness of breath, cough with greenish phlegm production, fever, chest tightness and wheezing secondary to COPD exacerbation. Chest x-ray was obtained which revealed multiple cardiac stents and COPD without evidence of acute airspace disease or congestion. BNP was 92. Patient was started on IV Solu-Medrol scheduled duo nebs and Zithromax. She is also continued on her home dose of Symbicort. She was given supplemental oxygen to maintain O2 sats greater than 92%. In the ED her blood pressure was uncontrolled at 229/123. Her lisinopril dose was increased to 20 mg daily and her beta-li was held secondary to COPD exacerbation. Given her cardiac history serial troponins were obtained which were negative and EKG showed no evidence of new ST changes. Patient improved slowly. She was strongly advised on importance of smoking cessation. Norvasc 5 mg had to be added to her blood pressure regimen for adequate control. She was resumed on her metoprolol with no worsening of her respiratory status. Patient underwent a home oxygen walk test but did not qualify for oxygen use at home. Patient declined case management services that were offered to assist her with any discharge needs given that she was unemployed and homeless. She did develop complaints of sore throat rapid strep test was negative and was felt this was secondary to oral thrush for which she was treated with nystatin. Patient was evaluated by physical therapy and no needs were identified. Patient was discharged from [facility] in stable condition. Pt Condition on Discharge: Stable Discharge Disposition: Discharge Home Discharge Time: > 30 minutes Discharge Instructions DIET: Follow Instructions for: Heart Healthy Diet Activities you can perform: Regular-No Restrictions Follow up Referrals: PCP Follow-up - 1 Week with [facility] New Medications: Acyclovir Topical (Zovirax Topical) 5% Cream 1 APPLIC TOPICAL 5 TIMES A DAY for HERPES, #1 TUBE x 4 days. Amlodipine (Norvasc) 5 Mg Tab 5 MG PO DAILY for Blood Pressure Management, #30 TAB 1 Refill Azithromycin (Azithromycin) 250 Mg Tab 250 MG PO DAILY for COPD, #2 TAB Lisinopril (Lisinopril) 10 Mg Tab 20 MG PO DAILY for Blood Pressure Management, #30 TAB Prednisone (Prednisone) 20 Mg Tab 40 MG PO DAILY for COPD, #4 TAB [guaiFENesin ER] () 600 MG TABCR 1200 MG PO BID for Chest Congestion/Cough, #10 [Nystatin Liq] () 5 ML SUSP 5 ML SWISH-SWAL QID for Thrush, #1 BOTTLE Continued Medications: Albuterol 18 GM Inh (Ventolin Hfa 18 GM Inh) 90 Mcg/Act Aer 2 PUFF INH Q4H PRN for SHORTNESS OF BREATH, #1 INHALER 1 Refill (This prescription has been renewed) Aspirin DR (Aspirin EC) 81 Mg Tabdr 81 MG PO DAILY for Blood Clot Prevention for 30 Days, #30 TAB 1 Refill (This prescription has been renewed) Atorvastatin (Atorvastatin) 20 Mg Tab 20 MG PO DAILY for Cholesterol Management, #30 TAB 1 Refill (This prescription has been renewed) Metoprolol Tartrate (Metoprolol Tartrate) 50 Mg Tab 50 MG PO BID for Blood Pressure Management, #60 TAB 1 Refill (This prescription has been renewed) [Budeson-Formot 160-4.5 Mcg Inh] () 60 PUFF AERO 2 PUFF INH Q12HR for Asthma Management, #1 INHALER 1 Refill (This prescription has been renewed) Discontinued Medications: Lisinopril (Lisinopril) 10 Mg Tab 10 MG PO DAILY, #30 TAB 0 Refills Radha Escobar September 28, 2017 10:19
[2017-09-28] MEDS: METOPROLOL TARTRATE 50 MG TAB PO SCH (11:16)
[2017-09-28] MEDS: SODIUM CHLORIDE 0.9% FLUSH 10 ML FLUSH IV FLUSH SCH (11:16)
[2017-09-28] MEDS: LISINOPRIL 10 MG TAB PO SCH (11:17)
[2017-09-28] MEDS: ASPIRIN EC 81 MG TABEC PO SCH (11:17)
[2017-09-28] MEDS: NYSTATIN SUSP 500,000 U/5 ML CUP SWISH-SWAL SCH (11:17)
[2017-09-28] MEDS: ATORVASTATIN 20 MG TAB PO SCH (11:17)
[2017-09-28] MEDS: amLODIPine BESYLATE 5 MG TAB PO SCH (11:17)
[2017-09-28] MEDS: AZITHROMYCIN 250 MG TAB PO SCH (11:18)
[2017-09-28] MEDS: guaiFENesin E.R. 600 MG TAB PO SCH (11:18)
[2017-09-28] MEDS: BUDESONIDE-FORMOTEROL 160/4.5 MCG INHALER INH SCH (11:19)
[2017-09-28] MEDS ORDERED: ACYCLOVIR 5% CREAM 5 GM TUBE TOPICAL SCH (14:00)
== END 2017-09-28 17:01 | disposition home or self-care (01) ==
LOC: NEPC 10:32 → NEDA 13:31 → OBSVTOIN 13:46 → INTOOBSV 13:46 → NEPGCP 14:57
PROVIDERS: ADMIT Internal Medicine; ATTEND Internal Medicine
DX: R09.02 Hypoxemia (principal); J44.1 Chronic obstructive pulmonary disease with (acute) exacerbation; I16.0 Hypertensive urgency; B37.0 Candidal stomatitis; I10 Essential (primary) hypertension; I25.10 Atherosclerotic heart disease of native coronary artery without angina pectoris; E78.5 Hyperlipidemia, unspecified; Z59.0 Homelessness; Z95.5 Presence of coronary angioplasty implant and graft
CPT/HCPCS: 71046; 80048; 80053; 80061; 82550; 82552; 82948; 83036; 83605; 83735; 83880; 84439; 84443; 84480; 84484; 85025; 85610; 85730; 87081; 87804; 87880; 93005; 94618; 94640; 94664; 96372; 96374; 96376; 99285; G0378; J1644; J1815; J2930; J7512